=== PATIENT | female | born 1995 | race Caucasian/White ===

== ENCOUNTER 2020-03-27 02:23 | Emergency (ER) | payer OTHER ==
--- NOTE | 2020-03-27 02:59 | ED Physician Documentation ---
PD HPI ABD PAIN - Stated complaint Stated Complaint: ABD PX - Chief complaint Chief Complaint: Abd Pain - History obtained from History obtained from: Patient - History of Present Illness Timing - onset: How many weeks ago (1) Timing - details: Gradual onset, Intermittant, Waxing and waning Pain level max: 8 Pain level now: 5 Quality: Cramping Location: All over / everywhere Radiation: Other (no radiation) Improved by: Other (nothing) Worsened by: Other (no exacerbating factors) Associated symptoms: Nausea, Vomiting, Constipation. No: Fever, Diarrhea Similar symptoms before: Has not had sx before Recently seen: Not recently seen - Additional information Additional information: c/o 1 week of constipation with urge to defecate but no BM, associated with generalized cramping pain that is episodic with pain-free intervals. Patient is 17 weeks . Has been taking stool softeners without results. Tolerating PO; has had occasional nausea and emesis x 2 Review of Systems Constitutional: denies: Fever, Chills, Sweats Cardiac: reports: Reviewed and negative Respiratory: reports: Reviewed and negative GI: reports: Abdominal Pain, Nausea, Vomiting, Constipation. denies: Abdominal Swelling : reports: Now EGA (17 weeks). 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 - Present Medications Home Medications: Ambulatory Orders Medication Instructions Recorded Confirmed Pnv No.95/Ferrous Fum/Folic AC 1 tab PO DAILY 03/27/20 03/27/20 [ Vitamins Tablet] - Allergies Allergies/Adverse Reactions: Allergies Allergy/AdvReac Type Severity Reaction Status Date / Time No Known Drug Allergies Allergy Verified 03/27/20 02:40 - Living Situation Living Arrangement: reports: At home PD ED PE NORMAL - Vitals Vital signs reviewed: Yes - General General: Alert and oriented X 3, No acute distress, Well developed/nourished - HEENT HEENT: Moist mucous membranes - Neck Neck: Supple, no meningeal sign - Cardiac Cardiac: RRR, No murmur - Respiratory Respiratory: No respiratory distress, Clear bilaterally - Abdomen Abdomen: Normal bowel sounds, Soft, Non tender, Non distended - Back Back: No CVA TTP Results - Vitals Vitals: Vital Signs - 24 hr 10/10/20 10/10/20 10/10/20 02:35 04:31 04:42 Temperature 36.9 C 36.8 C Heart Rate 97 89 86 Respiratory 22 18 Rate Blood Pressure 121/81 H 126/69 128/79 O2 Saturation 99 100 03/27/20 05:40 Temperature 36.8 C Heart Rate 79 Respiratory 16 Rate Blood Pressure 123/76 O2 Saturation 100 Oxygen O2 Source Room air - Labs Labs: Laboratory Tests 03/27/20 03/27/20 03/27/20 02:55 02:56 02:56 WBC 15.0 H RBC 4.14 L Hgb 11.9 L Hct 35.8 L MCV 86.5 MCH 28.7 MCHC 33.2 RDW 14.6 Plt Count 238 MPV 10.7 Neut # (Auto) 12.0 H Lymph # (Auto) 2.1 [place] # (Auto) 0.7 Eos # (Auto) 0.1 Baso # (Auto) 0.1 Absolute Nucleated RBC 0.00 Nucleated RBC % 0.0 Sodium 134 L Potassium 3.6 Chloride 103 Carbon Dioxide 22 Anion Gap 9.0 BUN 10 Creatinine 0.5 Estimated GFR (MDRD) 152 Glucose 97 Calcium 9.3 Total Bilirubin < 0.2 L AST 14 ALT 11 Alkaline Phosphatase 69 Total Protein 7.4 Albumin 3.5 Globulin 3.9 Albumin/Globulin Ratio 0.9 L Lipase 32 Urine Color YELLOW Urine Clarity CLEAR Urine pH 5.0 Ur Specific [place] >=1.030 H Urine Protein NEGATIVE Urine Glucose (UA) NEGATIVE Urine Ketones 15 H Urine Occult Blood NEGATIVE Urine Nitrite NEGATIVE Urine Bilirubin NEGATIVE Urine Urobilinogen 0.2 (NORMAL) Ur Leukocyte Esterase NEGATIVE Ur Microscopic Review NOT INDICATED Urine Culture Comments NOT INDICATED - Rads (name of study) abdominal xray Radiology: Prelim report reviewed, See rad report PD MEDICAL DECISION MAKING - ED course Complexity details: reviewed results, re-evaluated patient, considered differential, d/w patient ED course: ED RN administered fleets enema without results. a single abdominal xray was performed to assess for possible obstruction vs constipation, and this image is c/w constipation, appears to be greatest in ascending colon and hepatic flexure; patient given magnesium citrate to drink once she is home according to instructions, return if worse Departure - Departure Disposition: 01 Home, Self Care Clinical Impression: Constipation Condition: Good Instructions: ED Constipation Follow-Up: AGATHA JEFFERY [Primary Care Provider] - Discharge Date/Time: 03/27/20 05:46
[2020-03-27 03:02] LABS: BASOPHILS # (AUTO) 0.1 10^3/uL (0.0-0.1); BASOPHILS % (AUTO) 0.3 %; EOSINOPHILS # (AUTO) 0.1 10^3/uL (0.0-0.7); EOSINOPHILS % (AUTO) 0.4 %; HGB - HEMOGLOBIN 11.9 g/dL (12.0-16.0); LYMPHOCYTES # (AUTO) 2.1 10^3/uL (1.5-3.5); LYMPHOCYTES % (AUTO) 14.2 %; MEAN CORPUSCULAR HEMOGLOBIN 28.7 pg (27.0-31.0); MEAN CORPUSCULAR HGB CONC 33.2 g/dL (32.0-36.0); MEAN CORPUSCULAR VOLUME 86.5 fL (81.0-99.0); MEAN PLATELET VOLUME 10.7 fL (7.9-10.8); MONOCYTES # (AUTO) 0.7 10^3/uL (0.0-1.0); MONOCYTES % (AUTO) 4.5 %; PLT - PLATELET COUNT 238 10^3/uL (130-450); RED BLOOD COUNT 4.14 10^6/uL (4.20-5.40); RED CELL DISTRIBUTION WIDTH 14.6 % (12.0-15.0)
[2020-03-27 03:11] LABS: ALBUMIN 3.5 g/dL (3.2-5.5); ALBUMIN/GLOBULIN RATIO 0.9 (1.0-2.2); ALKALINE PHOSPHATASE 69 IU/L (42-121); ALT ALANINE AMINOTRANSFERASE 11 IU/L (10-60); AST ASPARTATE AMINOTRANSFERASE 14 IU/L (10-42); BILIRUBIN,TOTAL < 0.2 mg/dL (0.2-1.0); BUN - BLOOD UREA NITROGEN 10 mg/dL (6-20); CALCIUM 9.3 mg/dL (8.5-10.3); CARBON DIOXIDE - CO2 22 mmol/L (21-32); CHLORIDE 103 mmol/L (101-111); CREATININE 0.5 mg/dL (0.4-1.0); GLUCOSE 97 mg/dL (70-100); LIPASE 32 U/L (22-51); SODIUM 134 mmol/L (135-145); TOTAL PROTEIN 7.4 g/dL (6.7-8.2)
[2020-03-27 03:12] LABS: BILIRUBIN,URINE NEGATIVE (NEGATIVE); GLUCOSE, URINE (UA) NEGATIVE (NEGATIVE); KETONES,URINE (UA) 15 mg/dL (NEGATIVE); LEUKOCYTE ESTERASE, URINE NEGATIVE (NEGATIVE); NITRITE,URINE NEGATIVE (NEGATIVE); OCCULT BLOOD,URINE NEGATIVE (NEGATIVE); PROTEIN,URINE NEGATIVE (NEGATIVE); UROBILINOGEN,URINE 0.2 (NORMAL) E.U./dL (NORMAL)
[2020-03-27 03:13] LABS: CLARITY,URINE CLEAR (CLEAR)
[2020-03-27] MEDS ORDERED: MINERAL OIL ENEMA 133 ML BOTTLE RC STA (03:19)
[2020-03-27] MEDS ORDERED: SODIUM CHLORIDE 0.9% 1,000 ML IV STA ×2 (03:19→03:32)
[2020-03-27] MEDS ORDERED: MAGNESIUM CITRATE 296 ML BOTTLE PO STA (05:31)
[2020-03-27 05:45] VITALS: BP 123/76
--- NOTE | 2020-03-27 07:19 | XRAY Report ---
PROCEDURE: Abdomen 1 View X-Ray INDICATIONS: abd. pain TECHNIQUE: 1 view of the abdomen were acquired. COMPARISON: None. FINDINGS: Surgical changes and devices: None. Bowel: No pneumoperitoneum. The bowel gas pattern is nonobstructive. Moderate fecal material noted in the region of the ascending colon, transverse colon, and splenic flexure. Soft tissues: No masses; visualized solid organ contours appear normal in size. No suspicious abdom inal calcifications. Gravid uterus overlying the urinary bladder. Bones: No suspicious bony abnormalities. Mild dextrocurvature of the mid lumbar spine. IMPRESSION: 1. Moderate fecal material noted in the ascending colon through the splenic flexure. Findings are com patible with constipation. 2. Gravid uterus. No significant discrepancy with initial interpretation by overnight radiologist. Reviewed by: Duane Leihg MD on 03/27/2020 7:18 AM PDT Approved by: Duane Leigh MD on 03/27/2020 7:18 AM PDT Station ID: [id number]
== END 2020-03-27 05:46 | disposition home or self-care (01) ==
LOC: ED 02:23
DX: O99.612 Diseases of the digestive system complicating pregnancy, second trimester (principal); K59.00 Constipation, unspecified; Z3A.17 17 weeks gestation of pregnancy
CPT/HCPCS: 36415; 74018; 80053; 81003; 83690; 85025; 99282; 99284; A9270; 81001; 87086

== ENCOUNTER 2020-05-24 16:33 | Outpatient (CLI) | payer OTHER ==
--- NOTE | 2020-05-25 15:54 | Ultrasound Report ---
PROCEDURE: OB F/U or Repeat INDICATIONS: MEASURING LARGE FOR GEST AGE; GROWTH JUSTINA OUTSIDE/PRIOR DATING DATA: Last menstrual period (LMP): 11/29/2019. LMP-based estimated date of delivery (AMRITA): 09/04/2020. First dating scan (date and location): 02/29/2020 ([facility]). Estimated date of delivery (AMRITA) from first dating scan: 08/30/2020. TECHNIQUE: Real-time scanning was performed of the fetus, with image documentation and biometric measurements. Endovaginal scanning: Performed COMPARISON: None. FINDINGS: General: A single living intrauterine gestation is present. Presentation: Variable Placenta: Placental position is anterior, without previa. Amniotic fluid index: 14 cm, 41st percentile for gestational age. heart rate: 133 beats per minute. Maternal cervical canal: 4.6 cm long and closed; normal length is 2.5 cm or more. biometrics: Biparietal diameter: 6.2 cm, 25 weeks 2 days Head circumference: 23.7 cm, 25 weeks 5 days Abdominal circumference: 22.2 cm, 26 weeks 4 days Femur length: 4.7 cm, 25 weeks 5 days Estimated gestational age from initial scan: 26 weeks 0 days Composite gestational age from present scan: 25 weeks 6 days Estimated weight and percentile: 897 g, 58th percentile Measurement variability in biometric dating: +/- 10 days from 12-20 weeks gestation, +/- 2 weeks from 20-30 weeks gestation, +/- 3 weeks at 30 weeks gestation or more. Other: Not applicable. IMPRESSION: Single live intrauterine gestation with biometric parameters as described above. Reviewed by: Darshan Monk MD on 05/25/2020 3:53 PM PST Approved by: Darshan Monk MD on 05/25/2020 3:53 PM PST Station ID: [id number]
== END 2020-05-24 16:34 | disposition home or self-care (01) ==
LOC: DI 16:33
PROVIDERS: ATTEND Nurse Practitioner Obstetrics & Gynecology
DX: O36.62X0 Maternal care for excessive fetal growth, second trimester, not applicable or unspecified (principal); Z3A.26 26 weeks gestation of pregnancy

== ENCOUNTER 2020-05-31 14:27 | Emergency (ER) | payer OTHER ==
[2020-05-31 14:43] VITALS: BP 117/63
--- NOTE | 2020-05-31 15:11 | ED Physician Documentation ---
PD HPI NVD - Stated complaint Stated Complaint: FEVER/N/V - Chief complaint Chief Complaint: Abd Pain - History obtained from History obtained from: Patient (She is 26 weeks and became acutely ill this morning with fevers, body aches, nausea (declines nausea medicine) and diarrhea. No cough or shortness of breath. Her daughter is sick with what sounds like a viral syndrome.) Review of Systems Constitutional: reports: Fever, Myalgias, Fatigue Nose: reports: Epistaxis. 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 - Present Medications Home Medications: Ambulatory Orders Medication Instructions Recorded Confirmed Pnv No.95/Ferrous Fum/Folic AC 1 tab PO DAILY 03/27/20 03/27/20 [ Vitamins Tablet] - Allergies Allergies/Adverse Reactions: Allergies Allergy/AdvReac Type Severity Reaction Status Date / Time No Known Drug Allergies Allergy Verified 05/31/20 14:43 - Social History Does the pt smoke?: No Smoking Status: Never smoker Does the pt drink ETOH?: No Does the pt have substance abuse?: No - Immunizations Immunizations are current?: Yes - POLST Patient has POLST: No PD ED PE NORMAL - Vitals Vital signs reviewed: Yes - General General: Alert and oriented X 3, No acute distress - HEENT HEENT: PERRL, EOMI, Pharynx benign - Neck Neck: Supple, no meningeal sign, No bony TTP - Cardiac Cardiac: RRR, No murmur - Respiratory Respiratory: No respiratory distress, Clear bilaterally - Abdomen Abdomen: Non tender - Derm Derm: No rash - Neuro Neuro: Alert and oriented X 3, Normal speech - Psych Psych: Normal mood, Normal affect Results - Vitals Vitals: Vital Signs - 24 hr 05/31/20 14:39 Temperature 36.0 C L Heart Rate 93 Respiratory 16 Rate Blood Pressure 117/63 O2 Saturation 98 Oxygen O2 Source Room air PD MEDICAL DECISION MAKING - ED course ED course: Well-appearing woman who presents with viral URI symptoms. Coronavirus will be sent (send out). No clinical symptoms to relate to the . Departure - Departure Disposition: 01 Home, Self Care Clinical Impression: Viral syndrome Condition: Good Record reviewed to determine appropriate education?: Yes Instructions: ED Viral Syndrome Comments: Tylenol as needed for aches and pains. Return if worsening. Follow-up with your doctor in about 3 days if not better. Also routine care. You have a Covid test pending. You need to self quarantine until the result is done and negative. Do not leave your house. Do not get near anybody. The results should be done in 48 to 72 hours. We will call with a positive result, the fastest way to get a negative result for confirmation though is to go to the hospital website at [email or web address], click on the my [facility] tab and sign up for the patient portal. If any friends or family get sick and would like to have a Covid test done, but do not have signs or symptoms that would necessitate being hospitalized, we encourage testing through our coronavirus swabbing station, call [phone] to schedule an appointment. Forms: Activity restrictions
== END 2020-05-31 15:23 | disposition home or self-care (01) ==
LOC: ED 14:27
DX: O98.512 Other viral diseases complicating pregnancy, second trimester (principal); B34.9 Viral infection, unspecified; Z3A.26 26 weeks gestation of pregnancy; Z20.828 Contact with and (suspected) exposure to other viral communicable diseases
CPT/HCPCS: 99283

== ENCOUNTER 2020-06-25 08:36 | Outpatient (CLI) | payer OTHER ==
[2020-06-25 10:10] LABS: HGB - HEMOGLOBIN 9.7 g/dL (12.0-16.0); MEAN CORPUSCULAR HEMOGLOBIN 27.1 pg (27.0-31.0); MEAN CORPUSCULAR HGB CONC 31.8 g/dL (32.0-36.0); MEAN CORPUSCULAR VOLUME 85.2 fL (81.0-99.0); MEAN PLATELET VOLUME 10.4 fL (7.9-10.8); RED BLOOD COUNT 3.58 10^6/uL (4.20-5.40); RED CELL DISTRIBUTION WIDTH 13.8 % (12.0-15.0); WHITE BLOOD COUNT 11.9 x10^3/uL (4.8-10.8)
== END 2020-06-25 08:37 | disposition home or self-care (01) ==
LOC: LAB 08:36
PROVIDERS: ATTEND Nurse Practitioner Obstetrics & Gynecology
DX: Z36.89 Encounter for other specified antenatal screening (principal)
CPT/HCPCS: 36415; 82950; 85027

== ENCOUNTER 2020-07-21 15:08 | Outpatient (CLI) | payer OTHER ==
[2020-07-21] MEDS ORDERED: LACTATED RINGERS 1,000 ML IV ONE (15:53)
[2020-07-21] MEDS ORDERED: FERRIC GLUCONATE 125 MG in SODIUM CHLORIDE 0.9% 100ML 100 ML IV ONE (16:00)
[2020-07-21 17:16] LABS: BILIRUBIN,URINE NEGATIVE (NEGATIVE); GLUCOSE, URINE (UA) NEGATIVE (NEGATIVE); KETONES,URINE (UA) NEGATIVE (NEGATIVE); LEUKOCYTE ESTERASE, URINE NEGATIVE (NEGATIVE); NITRITE,URINE NEGATIVE (NEGATIVE); OCCULT BLOOD,URINE NEGATIVE (NEGATIVE); PH,URINE 6.5 PH (5.0-7.5); PROTEIN,URINE NEGATIVE (NEGATIVE); UROBILINOGEN,URINE 0.2 (NORMAL) E.U./dL (NORMAL)
[2020-07-21 17:17] LABS: CLARITY,URINE CLEAR (CLEAR)
[2020-07-21 17:18] LABS: BACTERIA,URINE None Seen /HPF (None Seen); RBC,URINE None Seen /HPF (0-5); SQUAMOUS EPITHELIAL CELL,UR RARE Squamous (<= Few)
[2020-07-21] MEDS ORDERED: TERBUTALINE 1 MG/ML VIAL SUBQ ONE (18:35)
--- NOTE | 2020-07-21 19:28 | Ultrasound Report ---
PROCEDURE: OB Limited INDICATIONS: cervical length assessment OUTSIDE/PRIOR DATING DATA: Last menstrual period (LMP): 11/29/2019. LMP-based estimated date of delivery (AMRITA): 09/04/2020. First dating scan (date and location): OB ultrasound, 02/29/2020. Estimated date of delivery (AMRITA) from first dating scan: 09/04/2020. TECHNIQUE: Real-time scanning was performed of the fetus, with image documentation. Endovaginal scanning: Performed COMPARISON: OB Ultrasound, 05/24/2020. FINDINGS: A single living intrauterine gestation is present. Presentation: Chronic Placenta: Placental position is anterior, without previa. Amniotic fluid index: 12.4 cm, 30.8% for gestational age. Largest pocket 5.2 cm. heart rate: 153 beats per minutes. Maternal cervical canal: 4.37 cm long and closed; normal length is 2.5 cm or more. Estimated gestational age from initial scan: 33 weeks 4 days; AMRITA 09/04/2020. There is a simple cyst in the left ovary. IMPRESSION: 1. A single living IUP is present. 2. Cervix measures 4.37 cm long and is closed. The preliminary result was given to Yamilet Grewal by dry cell assembly machine tender. Reviewed by: Jose Cho MD on 07/21/2020 7:26 PM PST Approved by: Jose Cho MD on 07/21/2020 7:26 PM PST Station ID: [id number]
--- NOTE | 2020-07-21 19:30 | Ultrasound Report ---
PROCEDURE: OB Transvaginal INDICATIONS: cervical length assessment TECHNIQUE: Transvaginal ultrasound was performed in addition to transabdominal scanning. FINDINGS: A single living intrauterine gestation is present. Presentation: Cephalic Placenta: Placental position is anterior, without previa. Amniotic fluid index: 12.4 cm, 30.8% for gestational age. Largest pocket 5.2 cm. heart rate: 153 beats per minutes. Maternal cervical canal: 4.37 cm long and closed; normal length is 2.5 cm or more. Estimated gestational age from initial scan: 33 weeks 4 days; AMRITA 09/04/2020. There is a simple cyst in the left ovary. IMPRESSION: 1. A single living IUP is present. 2. Cervix measures 4.37 cm long and is closed. The preliminary result was given to Yamilet Grewal by green feed attendant. Reviewed by: Jose Cho MD on 07/21/2020 7:29 PM PST Approved by: Jose Cho MD on 07/21/2020 7:29 PM PST Station ID: [id number]
[2020-07-21 19:38] VITALS: BP 114/60
[2020-07-21 19:47] LABS: CANDIDA GROUP DNA POSITIVE (NEGATIVE); CANDIDA KRUSEI DNA NEGATIVE (NEGATIVE); TRICHOMONAS VAGINALIS DNA NEGATIVE (NEGATIVE)
--- NOTE | 2020-07-22 13:49 | PROVIDER PROGRESS NOTE ---
- HPI Current : Current EDU 09/04/20 Gestation 33 Weeks and 4 Days 5 Para 1 Vital Signs Temperature 36.5 C 07/21/20 15:34 Heart Rate 105 H 07/21/20 15:34 Respiratory Rate 17 07/21/20 15:34 Blood Pressure 114/75 07/21/20 15:34 O2 Saturation 100 07/21/20 15:34 Temperature 36.5 C 07/21/20 16:09 Heart Rate 88 07/21/20 19:38 Respiratory Rate 16 07/21/20 19:38 Blood Pressure 114/60 07/21/20 19:38 O2 Saturation 99 07/21/20 19:38 - Exam Mari presents originally for an outpatient iron infusion, however was feeling some cramping today and her encouraged she be evaluated. Some contractions she barely notices, but others she needs to breathe through O: FFN- positive Affirm- positive yeast, negative BV UA- negative FHT 135, moderate variability, accels, no decels Speculum exam for FFN reveals softened external cervix appearance SVE is closed internal os/ some effacement (50%?)/-2 station 1L LR bolus given Fe infusion given while evaluating US- transvaginal reveals closed cervix with 4.37cm length Terbutaline given- contractions decreased A: 24yo at 33.4wks gestation with threatened labor Cervix closed P: Discharge home with labor precautions Pelvic Rest Continue with routine care Final Diagnosis: Threatened labor - Procedures OB Procedure Performed: NST NST Procedure: NST Procedure Stop Time 17:16 Patient States Movement Yes
== END 2020-07-21 20:01 | disposition home or self-care (01) ==
LOC: WFO 15:08 → FBP 15:13 → WFO 20:01
PROVIDERS: ATTEND Advanced Practice Midwife
DX: O60.03 Preterm labor without delivery, third trimester (principal); O23.593 Infection of other part of genital tract in pregnancy, third trimester; B96.89 Other specified bacterial agents as the cause of diseases classified elsewhere; O99.013 Anemia complicating pregnancy, third trimester; D64.9 Anemia, unspecified; Z3A.33 33 weeks gestation of pregnancy
CPT/HCPCS: 76815; 76817; 81001; 82731; 87481; 87661; 87801; 96365; 96372; 99213; J2916; J7120; 87086

== ENCOUNTER 2020-07-23 17:46 | Outpatient (CLI) | payer OTHER ==
[2020-07-23] MEDS ORDERED: NIFEdipine 10 MG CAPSULE PO ONE (18:05)
[2020-07-23] MEDS ORDERED: MAGNESIUM SULFATE 4 GRAM 4 GM/50 ML BAG IV ONE (18:06)
[2020-07-23] MEDS ORDERED: BETAMETHASONE 30 MG/5 ML VIAL IM ONE (18:06)
[2020-07-23] MEDS ORDERED: AMPICILLIN 2 GM in SODIUM CHLORIDE 0.9% MINIBAG 100 ML IV SCH (18:15)
[2020-07-23] MEDS ORDERED: MAGNESIUM SULFATE IN WATER 20 GM/500 ML IV.SOLN IV SCH (19:00)
[2020-07-23] MEDS ORDERED: LACTATED RINGERS 1,000 ML IV SCH (19:00)
--- NOTE | 2020-07-23 19:13 | PROVIDER PROGRESS NOTE ---
- HPI Chief Complaint: Labor Check Current : Chief Complaint: contractions HPI: Mari presents to [facility] today at approx 1800 with complaints of contractions today. She reports them as every 5-7minutes at 1300, but down to 10-15minutes when she finally presented. She rates them at 4-5/10 Following exam she reported a sensation of wetness/SROM She had presented to triage yesterday with contractions and was found to have a closed cervix, and a TV US showing 4.37cm cervical length 07/22 labs BV- neg Yeast- positive FFN- positive UA- neg Complications -anemia- on iron supplementation, iron infusion received x1 07/22/2020 -yeast infection- active. Rx sent yesterday, pt unable to fill -Pap 01/04/2020 ASCUS; HPV(high risk pos; 16/18 neg) Colpo indicated. Pt desires . History G1: 2016. SAB. 8wks G2: 2018. 41wks. Male. 8# G3: 2019. 39wks. Female 7#. Induced. G4: Current Labs and Findings Initial U/S: 03/08/2020 @ 14.2wks c/w LMP dating A pos/Rubella immune VZV: non-immune (vaccine ) Genetic testing: AFP Tetra -negative; SMA - negative FAS: 04/19/2020 WNL. Anterior placenta, no previa. 3VC. EFW 90th%tile. F/u growth ordered. f/u Growth: JUSTINA WNL (14); EFW 58%tile Glucola: 133 CBC: 30.5/9.7- iron supplementation started, iron infusion indicated Influenza: 05/12/2020 @ [facility] TDAP: 06/16/2020 GBS 36 weeks- collected at 33.6wks HSV: denies in self and partner Breast pump Rx: 06/16/2020 MOD: Anticipate ; Epecting a GIRL(unsure on name- Pratima?); 2 Children (11mo - Staci, 3yo - Eliecer); Desires unmedicated delivery - hoping to use nitrous oxide; desires (breastfed son x 13months, struggled with d aughter and fed x 2 months) Desires IOL r/t "history of fast labors" (had pit induction with both and 5 hour labor with last) childcare will be available at that time. pp contraception: Mirena IUD pap: 01/04/2020 ASCUS, HPV(high risk pos; 16/18 neg)- colpo indicated. Pt aware Allergies -NKDA Medications - vitamin- daily -Fe 325mg- daily -Clotrimazole- vaginal cream- nightly x7 nights (not yet started) Past Medical History -None Past Surgical History -None Social History -Non contributory Family History -Father HTN, NM male <55 -Brother- Autism, Dwarfism MGM- HTN PGM- HTN, Diabetes O: SVE 1.5-2/70/-3/mid/mod/intact Ctx q 4-10min, palpate mild/mod FHT 145, moderate variability, accels, no decels 07/23 labs GC/CT- awaiting results GBS- awaiting results ROM+- awaiting results Fern, valsalva, nitrizine, and pooling- negative A: 24yo at 33.6wks(EDC 09/04/2020 by 14.2wks US c/w LMP) with labor as evidenced by change in cervix from closed yesterday to 2cm today Cat I strip Requiring transfer to higher level facility with NICU P: [facility] accepting patient- Receiving physician Dr Rangel MgSO4- initiated Betamethasone- first dose administered IM at 1828 Nifedipine- pt declined due to orthodox preference- didn't want to interfere with the "progress of life"/God's plan (Reports as Jewish) GBS- pending GC/CT- pending UA/BV- wnl yesterday - Procedures NST Procedure: NST Procedure Stop Time 17:16
[2020-07-23 19:16] VITALS: BP 133/77
[2020-07-23 19:23] LABS: RUPTURE OF MEMBRANES PLUS NEGATIVE (NEGATIVE)
[2020-07-23 21:52] LABS: TRICHOMONAS VAGINALIS DNA NEGATIVE (NEGATIVE)
== END 2020-07-23 19:00 | disposition home or self-care (01) ==
LOC: WFO 17:46 → FBP 17:47 → WFO 19:00
PROVIDERS: ATTEND Advanced Practice Midwife
DX: O60.03 Preterm labor without delivery, third trimester (principal); O99.013 Anemia complicating pregnancy, third trimester; D50.9 Iron deficiency anemia, unspecified; O98.813 Other maternal infectious and parasitic diseases complicating pregnancy, third trimester; B37.9 Candidiasis, unspecified; O98.313 Other infections with a predominantly sexual mode of transmission complicating pregnancy, third trimester; A63.0 Anogenital (venereal) warts; Z3A.33 33 weeks gestation of pregnancy
CPT/HCPCS: 84112; 87491; 87591; 87661; 87797; 96372; 96374; 96375; 96376; 99212; J7120; 81001; 81003; 87081; 87086; J3475

== ENCOUNTER 2020-08-06 07:09 | Outpatient (CLI) | payer OTHER ==
[2020-08-06] MEDS ORDERED: TERBUTALINE 1 MG/ML VIAL SUBQ ONE (07:29)
[2020-08-06 07:39] VITALS: BP 109/57
--- NOTE | 2020-08-06 09:36 | PROVIDER PROGRESS NOTE ---
- HPI Chief Complaint: Labor Current : Current EDU 09/04/20 Gestation 35 Weeks and 6 Days 4 Para 2 Vital Signs Temperature 36.9 C 08/06/20 07:26 Heart Rate 91 08/06/20 07:26 Respiratory Rate 18 08/06/20 07:26 Blood Pressure 109/57 L 08/06/20 07:26 Temperature 36.9 C 08/06/20 07:51 Heart Rate 84 08/06/20 07:51 Respiratory Rate 16 08/06/20 07:51 Blood Pressure 109/57 L 08/06/20 07:51 O2 Saturation - Procedures OB Procedure Performed: NST Diagnosis/Indication for NST: labor NST Procedure: NST Procedure Start Time 17:52 Stop Time 18:50 - Plan Plan: S: Mari is a 24yo at 35.6wks who presents with report of strong contractions since 399. She denies VB or LOF and endorses movement She has a history of two term deliveries, however did have an episode of labor this causing her transfer to [facility] until stabilized and released back to midwifery care. She received two doses of betamethasone and 24h of MgSO4 administration IV. It is noted that her initial US was at 14.0wks and showed an AMRITA of 08/30/2020 instead of her LMP AMRITA of 09/04/2020 Future US showed baby continuing to measure 3-5 days ahead of dates Peds consulted and discussed likely appropriate continuation of care at this facility due to immediate proximity to 36.0wks gestation by any measure O: SVE on admit 1.5-2- unchanged from previous exams Terbutaline SQ given. Contractions appear to be every 5-10 minutes. FHT Cat I SVE recheck just over an hour later reveals an unchanged cervical exam. Mari would like to be discharged home. Declines therapeutic rest with MS/phenergan IM A: 24yo at 35.6wks gestation in false labor Appropriate for discharge home wellbeing, reassuring P: Discharge to home with instructions to return if contractions continue for 4 hours or more, or intensify in any way Otherwise continue with routine care NST perform date 08/06/2020 NST read date 08/06/2020 Impression: Reactive Final Diagnosis: False labor in third trimester
== END 2020-08-06 08:55 | disposition home or self-care (01) ==
LOC: WFO 07:09 → FBP 07:12 → WFO 08:55
PROVIDERS: ATTEND Advanced Practice Midwife
DX: O47.03 False labor before 37 completed weeks of gestation, third trimester (principal); Z3A.35 35 weeks gestation of pregnancy
CPT/HCPCS: 59025; 96372; 99213

== ENCOUNTER 2020-08-18 08:00 | Outpatient (CLI) | payer OTHER | END 2020-08-18 23:59 | disposition home or self-care (01) | LOC: LAB.R 08:00 | PROVIDERS: ATTEND Nurse Practitioner Obstetrics & Gynecology | DX: Z36.85 Encounter for antenatal screening for Streptococcus B (principal) | CPT/HCPCS: 87797 ==

== ENCOUNTER 2020-08-25 11:26 | Inpatient (IN) | payer OTHER ==
[2020-08-25] MEDS ORDERED: fentaNYL 100 MCG/2 ML VIAL IVP PRN (11:30)
[2020-08-25] MEDS ORDERED: ONDANSETRON 4 MG/2 ML VIAL IVP PRN (11:30)
[2020-08-25] MEDS ORDERED: METHYLERGONOVINE 0.2 MG/ML VIAL IM PRN (11:33)
[2020-08-25] MEDS ORDERED: miSOPROStoL 200 MCG TABLET BC PRN (11:33)
[2020-08-25] MEDS ORDERED: OXYTOCIN/SODIUM CHLORIDE 500 ML IV PRN (11:33)
[2020-08-25] MEDS ORDERED: LIDOCAINE-MPF 1% 30 ML VIAL ID PRN (11:33)
[2020-08-25] MEDS ORDERED: CARBOPROST TROMETHAMINE 250 MCG/ML AMP IM PRN (11:33)
[2020-08-25] MEDS ORDERED: TRANEXAMIC ACID IN NACL 1,000 MG/100 ML BAG IV PRN (11:33)
[2020-08-25] MEDS ORDERED: SODIUM CHLORIDE FLUSH 0.9% 10 ML SYRINGE IVP PRN (11:33)
[2020-08-25] MEDS ORDERED: OXYTOCIN 10 UNIT/ML VIAL IM PRN (11:33)
[2020-08-25] MEDS ORDERED: OXYTOCIN/SODIUM CHLORIDE 500 ML IV SCH (12:00)
[2020-08-25] MEDS ORDERED: LACTATED RINGERS 1,000 ML IV SCH (12:00)
[2020-08-25 12:09] LABS: BASOPHILS % (AUTO) 0.3 %; EOSINOPHILS % (AUTO) 0.3 %; HCT - HEMATOCRIT 33.7 % (37.0-47.0); HGB - HEMOGLOBIN 10.8 g/dL (12.0-16.0); LYMPHOCYTES # (AUTO) 2.3 10^3/uL (1.5-3.5); LYMPHOCYTES % (AUTO) 19.2 %; MEAN CORPUSCULAR HEMOGLOBIN 27.8 pg (27.0-31.0); MEAN CORPUSCULAR VOLUME 86.9 fL (81.0-99.0); MEAN PLATELET VOLUME 10.7 fL (7.9-10.8); MONOCYTES # (AUTO) 0.5 10^3/uL (0.0-1.0); MONOCYTES % (AUTO) 4.4 %; NEUTROPHILS # (AUTO) 9.1 10^3/uL (1.5-6.6); NEUTROPHILS % (AUTO) 75.1 %; PLT - PLATELET COUNT 226 10^3/uL (130-450); RED BLOOD COUNT 3.88 10^6/uL (4.20-5.40); RED CELL DISTRIBUTION WIDTH 18.9 % (12.0-15.0); WHITE BLOOD COUNT 12.2 x10^3/uL (4.8-10.8)
--- NOTE | 2020-08-25 15:08 | HISTORY & PHYSICAL EXAMINATION ---
Admit History - Visit Reason Visit Reason: Contractions - : 4 Parity: 2 Premature: 0 Ectopic: 0 : 1 Care: positive: [facility] Risk/History: positive: None Complications This : positive: None Smoking Status: Never smoker - Mother's Labs Mother's Blood Type: positive: A Mother's RH: positive: Positive GBS: positive: Group B Step Negative Rubella Status: positive: Immune Meds/Allgy - Home Medications Home Medications: Ambulatory Orders Medication Instructions Recorded Confirmed Pnv No.95/Ferrous Fum/Folic AC 1 tab PO DAILY 03/27/20 03/27/20 [ Vitamins Tablet] - Allergies Allergies/Adverse Reactions: Allergies Allergy/AdvReac Type Severity Reaction Status Date / Time No Known Drug Allergies Allergy Verified 05/31/20 14:43 Review of Systems - Constitutional Constitutional: denies: Fatigue, Fever, Chills, Malaise - Eyes Eyes: denies: Blurred vision, Spots in vision, Dipolpia - Cardiovascular Cariovascular: denies: Irregular heart rate, Palpitations, Chest pain, Edema - Respiratory Respiratory: denies: Cough, SOB at rest - Gastrointestinal Gastrointestinal: denies: Change in bowel habits - Integumentary Integumentary: denies: Rash, Pruritis - Neurological Neurological: denies: Headache Physical - Abdominal Exam Vital Signs: Temp Pulse Resp BP Pulse Ox 37.0 C 08/25/20 13:08 Contraction Frequency (min/apart): irregular, 2-8 Contraction Intensity: positive: Mild to moderate Uterine Resting Tone: positive: Soft - Monitoring Heart Rate Baseline: 140 Strip Review: positive: Category I - Presentation Presentation: positive: Vertex - Vaginal Exam Membranes: positive: Membranes intact Dilation (in cm): 4-5 Effacement (%): 70 Station: positive: -2 Cervical Position: positive: Posterior - Speculum Exam Speculum Exam Performed: positive: No Plan for Labor - Plan For Labor I expect patient to be DC'd or transferred within 96 hours.: Yes Plan for Labor: Mari is a 24yo @ 38.4wks who presents to [facility] with c/o contractions. Upon arrival she was noted to be 4-5/70/-2, posterior with intact membranes. She reports her contractions have increased in intensity throughout the morning. She had a routine visit this morning and had her membranes swept at that time. She reports her contractions have become more uncomfortable since that time. SVE this morning at her visit was /-2. She reports +FM. She denies vaginal bleeding or leakage of fluid. Mari has been a patient of [facility] since her transfer of care from [facility] at 23wks gestation. Her has been complicated by labor without delivery at 33.6wks gestation. At that time she was transferred to [facility] in anticipation for delivery. She received MgSO4 and betamethasone at that time. Upon her transfer she did not change her cervix for >24hrs and she was discharged to continue routine care. She has been diagnosed with anemia and is taking a daily iron supplement and received 1 IV iron transfusio harvey 33.6wks gestation. She will be admitted to [facility] for labor augmentation. Dating criteria: LMP: 11/29/2019 Initial ultrasound @ 14.2wks c/w LMP dating Serial exams - agree Medications: PNV; Zyrtec, FeSO4 325mg once daily Allergies: NKDA OBHx: G1: 2017 SAB with D&C @ 8wks G2: 2017 , epidural, male 8lbs G3: 2019 , unmedicated, female 7lbs. Pitocin IOL with 5 hour labor PMHx: Anemia; Chronic headaches, Scoliosis Surgical Hx: D&C (2016) Social Hx: Never smoker, no ETOH of IVDA. 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 Family Hx: Autism - brother; Dwarfism- brother; DVT-mother; Diabetes- PGM; HTN - father, PGM, MGM; [place]- Father course: Initial U/S: 03/08/2020 @ 14.2wks c/w LMP dating A pos/Rubella immune VZV: non-immune (vaccine ) Genetic testing: AFP Tetra -negative; SMA - negative FAS: 04/19/2020 WNL. Anterior placenta, no previa. 3VC. EFW 90th%tile. F/u growth ordered. f/u Growth: JUSTINA WNL (14); EFW 58%tile Threated PTL at 33.6wks- Released by PROV as stable Iron infusion- received at 33.6wks Glucola: 133 CBC: 30.5/9.7- iron supplementation started Influenza: 05/12/2020 @ [facility] TDAP: 06/16/2020 GBS at 37.4wks- neg. HSV: denies in self and partner Breast pump Rx: 06/16/2020 MOD: Anticipate ; Epecting a GIRL(unsure on name- Pratima?); 2 Children (11mo - Staci, 3yo - Eliecer); Desires unmedicated delivery - hoping to use nitrous oxide; desires (breastfed son x 13months, struggled with daughter and fed x 2 months) Desires IOL r/t "history of fast labors" (had pit induction with both and 5 hour labor with last) childcare will be available at that time. pp contraception: Mirena IUD pap: 01/04/2020 ASCUS, HPV(high risk pos; 16/18 neg)- colpo indicated. Pt aware Physical Exam: Normocephalic, atraumatic Heart RRR w/o M/G/R Lungs CTAB Abdomen gravid, soft, nontender EFW 3600g FHR baseline 140s, moderate variability, + accels, no deces Contractions palpate mild irregularly ever 2-8 minutes with soft resting tone SVE 4-5/70/-2, posterior. Vertex. Membranes intact Bilateral LE's trace edema Mood is good Assessment: 24yo @ 38.4wks gestation by LMP c/w 14.2wk U/S Early labor FHR Category I GBS negative Anemia complicating Plan: Admit to [facility] for labor augmentation. Initiate pitocin via IV with titration per protocol. Continuous monitoring. Nitrous oxide PRN. Jacuzzi PRN. Anticipate . Pt verbalized understanding and agrees to above plan. She denies further ques tions or concerns at this time.
--- NOTE | 2020-08-25 15:43 | PROVIDER PROGRESS NOTE ---
Labor Progress Note - Uterine Monitoring Uterine Monitoring Mode: positive: External toco Contraction Frequency (min/apart): 3 Contraction Intensity: positive: Moderate Uterine Resting Tone: positive: Soft - Monitoring Monitor Mode: positive: External ultrasound Heart Rate Baseline: 135 Heart Rate Variability: positive: Moderate (6-25 bmp) Accelerations: positive: Present, 15x15 Decelerations: positive: None Strip Review: positive: Category I - Vaginal Exam Dilation (in cm): 5 Effacement (%): 70 Station: -2 Cervical Position: Posterior - Labor Progress Note Labor Progress Note/Additional Text: S: Breathing through contractions. Reports nervousness about pain associated with labor. With her last she had her water broken at 7cm dilated and had a baby 30 minutes later. She states she would like to try the nitrous oxide for pain management. She attempted to get an epidural last night but she progressed rapidly. She does not desire and epidural with this delivery and states her recovery was much easier with her daughter than with her son. She is unaccompanied as her is home with their children. Her mood is good. O: SVE 5/70/-2, posterior. Vertex. AROM a moderate amount of light meconium stained amniotic fluid - convex grinder operator coffee brewer notified to be present for delivery. FHR baseline 135, moderate variability, + accels, no decels Contractions palpate moderate every 3 minutes with soft resting tone. Pitocin currently at 3mU/mL A: 24yo @ 38.4wks gestation by LMP c/w 14.2wk U/S Early labor FHR Category I P: Continue Pitocin with titration per protocol for labor augmentation Nitrous oxide PRN. jacuzzi PRN. Continuous monitoring. Anticipate
[2020-08-25] MEDS ORDERED: WITCH HAZEL/GLYCERIN 1 PAD TOP PRN (16:38)
[2020-08-25] MEDS ORDERED: HYDROCORTISONE 1% CREAM 28 GM TUBE PR PRN (16:38)
--- NOTE | 2020-08-25 16:38 | DELIVERY NOTE ---
Delivery Note - Labor Labor: positive: Spontaneous, Augmented by ARM, Augmented by oxytocin - Delivery Method Infant Delivery Method: positive: Spontaneous vaginal delivery - Presentation Presentation: positive: Vertex, NORMAN - left occiput anterior - Nuchal Cord Nuchal Cord: positive: None - Amniotic Fluid Description Amniotic Fluid Description: positive: Light meconium - Episiotomy Type Episiotomy Type: positive: None - Laceration Laceration: positive: None - Delivery Outcome Delivery Outcome: positive: Livebirth - Fillmore Fillmore: positive: Placed in direct skin contact with mother, Bulb syringe, Stimulated, Warmed, Hartshorn used, Warmer used Fillmore sex: positive: Female - Cord Cord: positive: 3 vessels - Placenta Placenta: positive: Intact, Spontaneous - Estimated Blood Loss Estimated Blood Loss (in cc): 200 - Post Delivery Events Post Delivery Events: positive: No post delivery events - Delivery Comments (Free Text/Narrative) Delivery Comments (Free Text/Narrative): Labor: This 24yo @ 38.4wks gestation by LMP c/w 14.2wk U/S presented to [facility] on 08/25/2020 at approximately 1130 with c/o contractions. Upon arrival she was noted to be 4-5/70/-2 and vertex with intact membranes. FHR pattern demonstrated Category I pattern throughout labor. Precipitous labor course. SROM occurred at 1458 and was noted to be a moderate amount of light meconium stained amniotic fluid and interventional physician or assistant notified to be present at time of delivery. Pt was augmented with pitocin for a maximum infusion rate of 3mU/mL. Nitrous oxide used for pain management in addition to 50mcg IV Fentanyl x 1 at 1547. Pt progressed to 9cm with intense spontaneous urge to bear down at 1606. : Normal of viable female infant on 08/25/2020 @ 1610 for a total se cond stage of 4 minutes. No nuchal cord. The was placed on maternal abdomen, stimulated, dried, and placed skin to skin. 's were 8/9 at 1 and 5 min respectively. Pitocin administered via IV for hemostasis. The umbilical cord was allowed to pulsate x 1 minute and request by or assistant to cut umbilical cord at that time so could be taken to warmer for evaluation secondary to presence of meconium. The umbilical cord was doubly clamped by CNM and cut by the patient. 3VC. Cord blood was obtained. Fundal massage and gentle cord traction applied for active management of the third stage. Placenta delivered spontaneously and intact at 1614. EBL 200mL. Fourth stage: Uterine fundus firm and there is no excessive bleeding. The perineum, vagina, and cervix were inspected and found to be intact. initiated. Family bonding well. Both mother and baby were left in stable condition.
[2020-08-25] MEDS: IBUPROFEN 800 MG TABLET PO SCH (16:45)
[2020-08-25] MEDS: ACETAMINOPHEN 500 MG TABLET PO SCH (16:45)
[2020-08-26] MEDS: IBUPROFEN 800 MG TABLET PO SCH ×3 (00:57→15:57)
[2020-08-26] MEDS: DOCUSATE SODIUM 100 MG CAPSULE PO SCH ×2 (01:01→07:43)
[2020-08-26] MEDS: ACETAMINOPHEN 500 MG TABLET PO SCH ×2 (01:01→15:56)
--- NOTE | 2020-08-26 12:41 | PROVIDER PROGRESS NOTE ---
Subjective - Subjective Subjective: FINAL PROGRESS NOTE: S: Bonding well with baby. with some difficulty getting baby to stay awake at the breast. Did supplement with formula x once. Bleeding decreased and is light. Pain well controlled with oral medications. She desires to be discharged home today as her is home with their 2 children. O: BP 121/78, T 36.5, HR 64, RR 16 Heart RRR w/o M/G/R, lungs CTAB, abdomen soft and nontender with fundus firm at U-1, perineum intact, light lochia rubra, bilateral LE's trace edema. A: 24yo -->P3 PPD#1 s/p TSVD viable female infant Normal recovery P: Reviewed pp self care and warning s/sx. Pt has emergency contact information. Pt intends to f/u in 1 week at [facility] with myself or sooner PRN. Pt verbalized understanding and agrees to above plan. She denies further questions or concerns at this time. Objective - Vital Signs/Intake & Output Vital Signs: Vital Signs x48h Temp Pulse Resp BP Pulse Ox 08/26/20 09:07 36.5 C 64 16 121/78 08/26/20 05:00 36.7 C 75 18 122/68 100 Intake & Output: Intake & Output 08/23/20 08/24/20 08/25/20 08/26/20 23:59 23:59 23:59 23:59 Intake Total 120 Balance 120 - Lab Results Fish Bones: 08/25/20 11:50 Other Labs: Lab Results x24hrs 08/25/20 Range/Units 11:50 Blood Type A POSITIVE Antibody Screen NEGATIVE
--- NOTE | 2020-08-26 12:41 | Discharge Plan ---
Discharge Plan Problem Reviewed?: No Disposition: Home, Self Care Condition: Good Diet: Regular Activity Restrictions: No Restrictions Shower Restrictions: No Driving Restrictions: No No Smoking: If you smoke, Please STOP! Call for help. Follow-up with: Beba Mai CNM, ARNP [Provider Admit Priv/Credential] -
--- NOTE | 2020-08-26 13:36 | DISCHARGE SUMMARY ---
Physician: MONI Santana DATE OF ADMISSION: 08/25/2020 DATE OF DISCHARGE: 08/26/2020 DIAGNOSES ON ADMISSION 1. A 24-year-old G4, P2-0-1-2 at 38.4 weeks gestation. 2. Early labor. 3. Group B Streptococcus negative. 4. Anemia, complicating . 5. heart rate category 1. DIAGNOSES ON DISCHARGE 1. A 24-year-old G4, P3-0-1-3, status post spontaneous vaginal delivery on 08/25/2020. 2. . 3. Normal recovery. HISTORY OF PRESENT ILLNESS: She is a patient of [facility], who presented on 2020 at approximately 11:30 with complaints of contractions. Upon arrival, her cervix was noted to b e 4-5 cm dilated, 74% effaced, -2 position and vertex position with intact membranes. Artificial rup ture of membranes occurred at 1458, there was noted to be a moderate amount of light meconium stained amniotic fluid. She was augmented with Pitocin for a maximum infusion rate of 3 mU/mL She progress ed to spontaneously deliver a viable female infant on 08/25/2020 at 1610 following a precipitous labo r course. Apgars were 8 and 9 at 1 and 5 minutes respectively. EBL was 200 mL The perineum, vagina , and cervix were inspected and found to be intact. She has been doing well in her course. She is ambulating and tolerating a regular diet. She is urinating without difficulty and her lochia is normal. Her pain is well controlled with oral medications. She will be discharged home today on day #1 with instructions to continue he r vitamin while and to continue taking ibuprofen and Tylenol [id number] as needed for pain management. She intends to followup with myself at [facility] [place] in 1 week for routine visit or sooner if needed. She has been given precautions to call if she has any worsening fevers, chills, abdominal pain, increased bleeding, or foul-smelling vaginal lo stefan. TD: 08/26/2020 12:46
[2020-08-26 17:52] VITALS: BP 118/66
--- NOTE | 2020-08-26 18:04 | Labor Flowsheet ---
Labor Flowsheet Datetime Report Generated by CPN: 08/26/2020 18:03 Datetime: 08/26/2020 09:07 VITAL SIGNS NBP Sys/Omayra/Mean (mmHg): 121 : 78 : 84 Pulse: 72 LaborFlag: Labor Datetime: 08/25/2020 17:25 PAIN Pain Scale: 0 Datetime: 08/25/2020 16:14 Comments: placenta Datetime: 08/25/2020 16:09 UTERINE ACTIVITY Monitor Mode: External Frequency (min): 2-3 Quality: Strong Duration (sec): 60 Pattern: Normal: <= 5 Contractions in 10 Minutes Resting Tone (Palpate): Relaxed FHR Baseline Changes: No Baseline Change Variability: Moderate 6-25 bpm Accelerations: 15X15 Decelerations: None Category: Category I Datetime: 08/25/2020 16:06 VAGINAL EXAM Dilatation (cm): 9.0 Effacement (%): 90 Station: 0 Exam by: A Pau Cervix, Consistency: Soft Vaginal Exam Comments: complete shortly after last check Datetime: 08/25/2020 15:53 Monitor Interventions for UA: Solon Adjusted Monitor Interventions for FHR: Ultrasound Adjusted Datetime: 08/25/2020 15:51 Patient Care Comments: hands and knees Datetime: 08/25/2020 15:47 Analgesics/Sedatives: Fentanyl (mcg) @ 50mcg IVP given Datetime: 08/25/2020 15:46 Cervix, Position: Midposition Datetime: 08/25/2020 15:39 Pain Presence: Intermittent Pain Type: Burning; Cramping Pain Location: Abdomen; Right Groin; Left Groin Pain Relief Measures: Pain Medication Given; Comfort Measures Pain Assessment Comments: nitros Comfort Measures: Breathing/Relaxation Datetime: 08/25/2020 15:30 COMMUNICATION Communication: Call/Page Placed to Provider Communication Comments: Dr. Rodriguez made aware of light mec. MD will be in for delivery Datetime: 08/25/2020 15:09 Temperature (C): 36.8 Datetime: 08/25/2020 15:04 Medication Comments: Nitros given/explained. Pt. verbalized understanding. Return demonstration g iven. Datetime: 08/25/2020 14:58 Membrane Status: Ruptured Membranes Rupture Method: Artificial Amniotic Fluid Color: Light Meconium Amniotic Fluid Amount: Moderate Datetime: 08/25/2020 14:37 Pain Goal: 5 Datetime: 08/25/2020 14:33 PATIENT CARE Patient Position/Activity: Walking Datetime: 08/25/2020 14:28 I/O Interventions: Up to BR Datetime: 08/25/2020 14:13 Pitocin Checklist: At Least 1 Acceleration of 15 bpm x 15 Seconds in 30 Minutes or Adequate Variabi lity; No More than 1 Late Deceleration Occurred in Past 30 Minutes; No More than 2 Variable Decelerat ions > 60 Seconds in Duration and decreasing >60 bpm in 30 minutes; No More than 5 Uterine Contractio ns in 10 Minutes for any 20 Minute Interval; Uterus Palpates Soft between Contractions MEDICATIONS Pitocin (milliunits): Increased to @ 3 Datetime: 08/25/2020 14:02 ASSESSMENT A Monitor Mode: Telemetry Datetime: 08/25/2020 13:35 SpO2 (%): 100 Datetime: 08/25/2020 12:45 FHR Baseline Rate : 130 Datetime: 08/25/2020 12:30 Contraction Comments: irritability
== END 2020-08-26 17:40 | disposition home or self-care (01) | DRG 807 ==
LOC: WFO 11:26 → FBP 11:27 → WFO 11:33
PROVIDERS: ADMIT Nurse Practitioner Obstetrics & Gynecology; ATTEND Nurse Practitioner Obstetrics & Gynecology
PROC: 10E0XZZ Delivery of Products of Conception, External Approach (ICD-10-PCS; principal; 2020-08-25)
PROC: 10907ZC Drainage of Amniotic Fluid, Therapeutic from Products of Conception, Via Natural or Artificial Opening (ICD-10-PCS; 2020-08-25)
DX: O99.013 Anemia complicating pregnancy, third trimester (principal); Z37.0 Single live birth; D64.9 Anemia, unspecified; O77.0 Labor and delivery complicated by meconium in amniotic fluid; Z3A.38 38 weeks gestation of pregnancy
CPT/HCPCS: 85025; 86850; 86900; 86901; A9270; J7120

== ENCOUNTER 2020-10-15 10:57 | Emergency (ER) | payer OTHER ==
--- OUTSIDE RECORDS SUMMARY | 2020-10-15 11:00 | EXTERNAL MEDICAL SUMMARY RPT | Continuity of Care Document ---
:1995 Demographics Phone Unavailable Preferred Language Unknown Marital Status Unknown Jew Affiliation Unknown Race Unknown Ethnic Group Unknown Author Organization [place] Address [address] [place] [address] Phone Problems date description facility [id number] Supervision of with history [facility] of pre-term labor, second trimester Social History date description facility [id number]
--- NOTE | 2020-10-15 11:15 | ED Physician Documentation ---
PD HPI ABD PAIN - Stated complaint Stated Complaint: R SIDE ABDOMINAL PX - History obtained from History obtained from: Patient - History of Present Illness Timing - onset: Last night Timing - details: Gradual onset, Still present (increased into this morning) Quality: Aching, Pain Location: RLQ, Suprapubic Radiation: No: Chest, Right flank Improved by: Laying still Worsened by: Moving, Palpation. No: Breathing Associated symptoms: Nausea, Loss of appetite. No: Fever, Vomiting, Diarrhea, Constipation, Dysuria, Vaginal bleeding Similar symptoms before: Has not had sx before Recently seen: Other (She delivered full-term vaginal delivery child a month ago without any complications.) Review of Systems Constitutional: denies: Fever, Chills, Myalgias Nose: denies: Rhinorrhea / runny nose, Congestion Throat: denies: Sore throat Respiratory: denies: Cough GI: reports: Abdominal Pain, Nausea. denies: Vomiting, Constipation, Diarrhea : reports: LMP (has not had a period since her delivery a month ago). 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 - Present Medications Home Medications: Ambulatory Orders Medication Instructions Recorded Confirmed No Known Home Medications 10/15/20 10/15/20 - Allergies Allergies/Adverse Reactions: Allergies Allergy/AdvReac Type Severity Reaction Status Date / Time No Known Drug Allergies Allergy Verified 10/15/20 11:16 - Social History Does the pt smoke?: No Smoking Status: Never smoker Does the pt drink ETOH?: No Does the pt have substance abuse?: No - Immunizations Immunizations are current?: Yes - POLST Patient has POLST: No PD ED PE NORMAL - Vitals Vital signs reviewed: Yes - General General: Alert and oriented X 3, Well developed/nourished, Other (She appears uncomfortable with some guarding of the lower abdomen.) - HEENT HEENT: Pharynx benign - Neck Neck: Supple, no meningeal sign, No adenopathy - Cardiac Cardiac: RRR, No murmur - Respiratory Respiratory: Clear bilaterally - Abdomen Abdomen: Soft, Non distended, No organomegaly, Other (Tender in the right lower quadrant with some localized guarding and percussion tenderness. No rebound noted. The mid lower abdomen is also tender. Upper abdomen is not tender.). No: Normal bowel sounds (decreased) - Female Female : Deferred - Rectal Rectal: Deferred - Back Back: No CVA TTP - Derm Derm: Normal color, Warm and dry, No rash - Extremities Extremities: No tenderness to palpate, No edema, No calf tenderness / cord - Neuro Neuro: Alert and oriented X 3, No motor deficit, Normal speech Results - Vitals Vitals: Vital Signs - 24 hr 10/15/20 10/15/20 11:05 13:24 Temperature 36.8 C Heart Rate 77 57 L Respiratory 16 16 Rate Blood Pressure 109/96 H 118/78 O2 Saturation 100 100 Oxygen O2 Source Room air - Labs Labs: Laboratory Tests 10/15/20 10/15/20 10/15/20 11:22 11:22 11:22 WBC 7.1 RBC 4.73 Hgb 13.4 Hct 42.5 MCV 89.9 MCH 28.3 MCHC 31.5 L RDW 16.9 H Plt Count 253 MPV 9.8 Neut # (Auto) 3.7 Lymph # (Auto) 2.8 Cleveland # (Auto) 0.5 Eos # (Auto) 0.1 Baso # (Auto) 0.0 Absolute Nucleated RBC 0.00 Nucleated RBC % 0.0 Sodium 139 Potassium 3.5 Chloride 103 Carbon Dioxide 27 Anion Gap 9.0 BUN 14 Creatinine 0.7 Estimated GFR (MDRD) 103 Glucose 81 Calcium 9.6 Total Bilirubin 0.9 AST 18 ALT 23 Alkaline Phosphatase 97 Total Protein 8.5 H Albumin 4.8 Globulin 3.7 Albumin/Globulin Ratio 1.3 Lipase 31 Urine Color YELLOW Urine Clarity CLEAR Urine pH 6.0 Ur Specific Booker 1.025 Urine Protein NEGATIVE Urine Glucose (UA) NEGATIVE Urine Ketones NEGATIVE Urine Occult Blood NEGATIVE Urine Nitrite NEGATIVE Urine Bilirubin NEGATIVE Urine Urobilinogen 0.2 (NORMAL) Ur Leukocyte Esterase NEGATIVE Ur Microscopic Review NOT INDICATED Urine Culture Comments NOT INDICATED Urine HCG, Qual 10/15/20 11:22 WBC RBC Hgb Hct MCV MCH MCHC RDW Plt Count MPV Neut # (Auto) Lymph # (Auto) Cleveland # (Auto) Eos # (Auto) Baso # (Auto) Absolute Nucleated RBC Nucleated RBC % Sodium Potassium Chloride Carbon Dioxide Anion Gap BUN Creatinine Estimated GFR (MDRD) Glucose Calcium Total Bilirubin AST ALT Alkaline Phosphatase Total Protein Albumin Globulin Albumin/Globulin Ratio Lipase Urine Color Urine Clarity Urine pH Ur Specific Booker Urine Protein Urine Glucose (UA) Urine Ketones Urine Occult Blood Urine Nitrite Urine Bilirubin Urine Urobilinogen Ur Leukocyte Esterase Ur Microscopic Review Urine Culture Comments Urine HCG, Qual NEGATIVE - Rads (name of study) pelvic U/S Radiology: Prelim report reviewed (Normal pelvic U/S, unable to visualize appendix. ), See rad report PD MEDICAL DECISION MAKING - ED course Complexity details: re-evaluated patient (Pelvic ultrasound did not show any acute abnormality. Appendix was not seen on ultrasound. Clinical exam is concerning for appendicitis. White count is normal. At this point CT would be appropriate and are as is broken today. Will work on transfer.), considered differential (Consider possibilities of ovarian cyst versus torsion versus kidney stone versus appendicitis versus ectopic . She is well over a month without any vaginal discharge so endometritis would be unlikely.), d/w patient, d/w heritage consultant (Talked with Dr. Isa Ocampo at [facility] ER who accepted transfer the patient to their facility for CT scanning and disposition.) ED course: I did discuss with the patient rationale for wanting further imaging. Her white count is normal but she does have tenderness suggestive of appendicitis. She was in favor of CT scanning over potential surgical intervention empirically. We will look at transferring to [facility] ER for CT scan and further disposition. Departure - Departure Disposition: 02 Transfer Acute Care Hosp Clinical Impression: RLQ abdominal pain Condition: Stable Record reviewed to determine appropriate education?: Yes
[2020-10-15 11:32] LABS: BASOPHILS % (AUTO) 0.6 %; BILIRUBIN,URINE NEGATIVE (NEGATIVE); EOSINOPHILS # (AUTO) 0.1 10^3/uL (0.0-0.7); EOSINOPHILS % (AUTO) 1.1 %; GLUCOSE, URINE (UA) NEGATIVE (NEGATIVE); HCT - HEMATOCRIT 42.5 % (37.0-47.0); HGB - HEMOGLOBIN 13.4 g/dL (12.0-16.0); KETONES,URINE (UA) NEGATIVE (NEGATIVE); LEUKOCYTE ESTERASE, URINE NEGATIVE (NEGATIVE); LYMPHOCYTES # (AUTO) 2.8 10^3/uL (1.5-3.5); LYMPHOCYTES % (AUTO) 39.7 %; MEAN CORPUSCULAR HEMOGLOBIN 28.3 pg (27.0-31.0); MEAN CORPUSCULAR HGB CONC 31.5 g/dL (32.0-36.0); MEAN CORPUSCULAR VOLUME 89.9 fL (81.0-99.0); MEAN PLATELET VOLUME 9.8 fL (7.9-10.8); MONOCYTES # (AUTO) 0.5 10^3/uL (0.0-1.0); MONOCYTES % (AUTO) 6.4 %; NEUTROPHILS # (AUTO) 3.7 10^3/uL (1.5-6.6); NEUTROPHILS % (AUTO) 52.1 %; NITRITE,URINE NEGATIVE (NEGATIVE); OCCULT BLOOD,URINE NEGATIVE (NEGATIVE); PLT - PLATELET COUNT 253 10^3/uL (130-450); PROTEIN,URINE NEGATIVE (NEGATIVE); RED BLOOD COUNT 4.73 10^6/uL (4.20-5.40); RED CELL DISTRIBUTION WIDTH 16.9 % (12.0-15.0); UROBILINOGEN,URINE 0.2 (NORMAL) E.U./dL (NORMAL); WHITE BLOOD COUNT 7.1 x10^3/uL (4.8-10.8)
[2020-10-15 11:33] LABS: CLARITY,URINE CLEAR (CLEAR)
[2020-10-15] MEDS ORDERED: HYDROmorphone 1 MG/ML CARPUJECT IVP STA ×2 (11:36→14:27)
[2020-10-15] MEDS ORDERED: KETOROLAC 30 MG/ML VIAL IVP STA (11:36)
[2020-10-15] MEDS ORDERED: SODIUM CHLORIDE 0.9% 1,000 ML IV STA ×2 (11:36→13:01)
[2020-10-15 11:46] LABS: HCG UR QUAL NEGATIVE
[2020-10-15 11:48] LABS: ALBUMIN 4.8 g/dL (3.2-5.5); ALBUMIN/GLOBULIN RATIO 1.3 (1.0-2.2); BILIRUBIN,TOTAL 0.9 mg/dL (0.2-1.0); CALCIUM 9.6 mg/dL (8.5-10.3); CREATININE 0.7 mg/dL (0.4-1.0); POTASSIUM 3.5 mmol/L (3.5-5.0); TOTAL PROTEIN 8.5 g/dL (6.7-8.2)
--- OUTSIDE RECORDS SUMMARY | 2020-10-15 11:49 | EXTERNAL MEDICAL SUMMARY RPT | Continuity of Care Document ---
:1995 Demographics Phone Unavailable Preferred Language Unknown Marital Status Unknown Mandaen Affiliation Unknown Race Unknown Ethnic Group Unknown Author Organization [place] Address [address] [place] [address] Phone Problems date description facility [id number] Supervision of with history [facility] of pre-term labor, second trimester Social History date description facility [id number]
--- NOTE | 2020-10-15 13:15 | Ultrasound Report ---
PROCEDURE: Abdomen Limited INDICATIONS: RLQ pain, eval ovaries/appendix TECHNIQUE: Real-time focused scanning was performed of the abdomen, with image documentation. COMPARISON: Pelvic ultrasound from the same date FINDINGS: The right lower quadrant was interrogated with a high megahertz linear transducer utilizin g graded compressions. The appendix is not visualized. IMPRESSION: The appendix is not visualized. This does not rule out acute appendicitis. Recommend clinical correla tion and consideration of CT of the abdomen and pelvis if there is significant suspicion of acute maura endicitis. Reviewed by: Jovanni Ayoub MD on 10/15/2020 1:13 PM PDT Approved by: Jovanni Ayoub MD on 10/15/2020 1:13 PM PDT Station ID: [id number]
--- NOTE | 2020-10-15 13:17 | Ultrasound Report ---
PROCEDURE: Pelvic w/Transvag+Doppler Comp INDICATIONS: pelvic pain, R TECHNIQUE: Real-time scanning was performed of the pelvic organs, with image documentation. Additional endovagi nal scanning was necessary due to incomplete visualization of the adnexal and endometrial structures by transabdominal scanning. COMPARISON: Right lower quadrant ultrasound from the same day. FINDINGS: No pathologic free abdominal or pelvic fluid. Uterus: Uterus is normal in size at 9.1 x 4.4 x 6.5 cm., With a uterine volume of 138 mL The endome trium is very thin. Ovaries: Right ovary measures 3.5 x 2.2 x 1.9 cm, with a volume of 7.8 mL. Left ovary measures 3.1 x 1.5 x 2.4 cm with a volume of 5.7 mL. There is bilateral intraovarian flow. No abnormal adnexal mass es. IMPRESSION: Unremarkable pelvic ultrasound. Reviewed by: Jovanni Ayoub MD on 10/15/2020 1:16 PM PDT Approved by: Jovanni Ayoub MD on 10/15/2020 1:16 PM PDT Station ID: [id number]
[2020-10-15 13:25] VITALS: BP 118/78
[2020-10-15 16:11] LABS: B. PARAPERTUSSIS- RESP PCR PAN NOT DETECTED; B. PERTUSSIS- RESP PCR PANEL NOT DETECTED; C. PNEUMONIAE- RESP PCR PANEL NOT DETECTED; CORONAVIRUS 229E-RESP PCR NOT DETECTED; CORONAVIRUS HKU1-RESP PCR NOT DETECTED; CORONAVIRUS NL63-RESP PCR NOT DETECTED; CORONAVIRUS OC43-RESP PCR NOT DETECTED; HUMAN METAPNEUMOVIRUS NOT DETECTED; INFLUENZA A- RESP PCR PANEL NOT DETECTED; INFLUENZA B - RESP PCR PANEL NOT DETECTED; M. PNEUMONIAE- RESP PCR PANEL NOT DETECTED; PARAINFLUENZA VIRUS 1 NOT DETECTED; PARAINFLUENZA VIRUS 2 NOT DETECTED; PARAINFLUENZA VIRUS 3 NOT DETECTED; PARAINFLUENZA VIRUS 4 NOT DETECTED; RHINOVIRUS/ENTEROVIRUS NOT DETECTED; RSV- RESP PCR PANEL NOT DETECTED; SARS-CoV-2 -RESP PCR PANEL NOT DETECTED
== END 2020-10-15 15:03 | disposition short-term general hospital (02) ==
LOC: ED 10:57
DX: O90.89 Other complications of the puerperium, not elsewhere classified (principal); R10.31 Right lower quadrant pain; R11.0 Nausea; Z20.822 Contact with and (suspected) exposure to COVID-19
CPT/HCPCS: 0202U; 36415; 76705; 76830; 76856; 80053; 81003; 81025; 83690; 85025; 93975; 96360; 96361; 96372; 99284; 99285; 81001; 87086

== ENCOUNTER 2020-10-15 15:03 | Outpatient (CLI) | payer OTHER | END 2020-10-15 15:04 | disposition short-term general hospital (02) | LOC: EMS 15:03 | DX: O90.89 Other complications of the puerperium, not elsewhere classified (principal); R10.31 Right lower quadrant pain; R11.10 Vomiting, unspecified | CPT/HCPCS: A0425; A0428 ==

== ENCOUNTER 2021-04-11 10:37 | Emergency (ER) | payer OTHER ==
[2021-04-11 10:48] VITALS: BP 130/73
--- NOTE | 2021-04-11 12:26 | ED Physician Documentation ---
PD HPI HEENT - Stated complaint Stated Complaint: CONGESTION/SORE THROAT - Chief complaint Chief Complaint: Resp - History obtained from History obtained from: Patient - Additional information Additional information: Sick since last night with nonproductive cough, low-grade fever, raspy throat and runny nose. Her children were sick with viral URI about a week ago. She has not been immunized against Covid. Review of Systems Constitutional: reports: Fever. denies: Chills, Myalgias Nose: reports: Rhinorrhea / runny nose Throat: reports: Sore throat Respiratory: reports: Cough. 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 - Present Medications Home Medications: Ambulatory Orders Medication Instructions Recorded Confirmed Benzonatate [Tessalon] 200 mg PO QID PRN #20 cap 04/11/21 guaiFENesin/CODEINE [Robitussin AC] 5 - 10 ml PO Q6H PRN #120 ml 04/11/21 - Allergies Allergies/Adverse Reactions: Allergies Allergy/AdvReac Type Severity Reaction Status Date / Time No Known Drug Allergies Allergy Verified 04/11/21 10:48 - Social History Does the pt smoke?: No Smoking Status: Never smoker Does the pt drink ETOH?: No Does the pt have substance abuse?: No - Immunizations Immunizations are current?: Yes - POLST Patient has POLST: No PD ED PE NORMAL - Vitals Vital signs reviewed: Yes - General General: Alert and oriented X 3, No acute distress - HEENT HEENT: Pharynx benign - Neck Neck: Supple, no meningeal sign, No bony TTP - Cardiac Cardiac: RRR, No murmur - Respiratory Respiratory: No respiratory distress, Clear bilaterally - Derm Derm: No rash - Neuro Neuro: Alert and oriented X 3, Normal speech Results - Vitals Vitals: Vital Signs - 24 hr 04/11/21 10:44 Temperature 36.4 C L Heart Rate 88 Respiratory 14 Rate Blood Pressure 130/73 O2 Saturation 98 Oxygen O2 Source Room air PD MEDICAL DECISION MAKING - ED course ED course: 25-year-old woman with what seems like a ahe-hv-jyx-mill viral URI with cough. Syndrome is inconsistent with strep. Covid test pending. She discussed the need for home quarantine until testing is complete. Departure - Departure Disposition: 01 Home, Self Care Clinical Impression: Viral syndrome Condition: Good Record reviewed to determine appropriate education?: Yes Instructions: ED Viral Syndrome Prescriptions: guaiFENesin/CODEINE [Robitussin AC] 5 - 10 ml PO Q6H PRN #120 ml PRN Reason: Cough Benzonatate [Tessalon] 200 mg PO QID PRN #20 cap PRN Reason: Cough Comments: [place] [facility] [place] Return if not better in a week or follow-up with your doctor in that timeframe. Also return if worsening or if new symptoms develop for reevaluation. You have a Covid test pending. You need to self quarantine until the result is done and negative. Do not leave your house. Do not get near anybody. The results should be done in 48 to 72 hours. We will call with a positive result, the fastest way to get a negative result for confirmation though is to go to the hospital website at [email or web address], click on the my [facility] tab and sign up for the patient portal. If any friends or family get sick and would like to have a Covid test done, but do not have signs or symptoms that would necessitate being hospitalized, we encourage testing through our coronavirus swabbing station, call [phone] to schedule an appointment. Forms: Activity restrictions
== END 2021-04-11 12:28 | disposition home or self-care (01) ==
LOC: ED 10:37
DX: B34.9 Viral infection, unspecified (principal); Z20.822 Contact with and (suspected) exposure to COVID-19
CPT/HCPCS: 99283

== ENCOUNTER 2021-06-07 12:54 | Emergency (ER) | payer OTHER ==
--- NOTE | 2021-06-07 13:16 | ED Physician Documentation ---
History of Present Illness - Stated complaint Stated Complaint: BLEEDING,CRAMPING,VOMITING,+PREG - Chief complaint Chief Complaint: Abd Pain - Additonal information Additional information: 25-year-old female presents emergency department for evaluation of first trimester vaginal bleeding and lower abdominal cramping. G63. LMP 04/24/2021. She has had 2 spontaneous miscarriages in early . Has not yet established with an OB for this . Reports that yesterday afternoon she began having some generalized lower abdominal cramping but began having vaginal spotting around midnight that has been followed by heavier more curb progressive bleeding as well as clots. No dysuria urgency or frequency. No history of pertinent past surgical history. Previous pregnancies delivered vaginally. Patient is a A+ Review of Systems Constitutional: reports: Reviewed and negative Nose: reports: Reviewed and negative Throat: reports: Reviewed and negative Cardiac: reports: Reviewed and negative Respiratory: reports: Reviewed and negative GI: reports: Abdominal Pain, Nausea. 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 - Present Medications Home Medications: Ambulatory Orders Medication Instructions Recorded Confirmed Pnv No.95/Ferrous Fum/Folic AC 1 each PO DAILY 06/07/21 06/07/21 [ Caplet] - Allergies Allergies/Adverse Reactions: Allergies Allergy/AdvReac Type Severity Reaction Status Date / Time No Known Drug Allergies Allergy Verified 06/07/21 12:59 - Social History Does the pt smoke?: No Smoking Status: Never smoker Does the pt drink ETOH?: No Does the pt have substance abuse?: No - Immunizations Immunizations are current?: Yes - POLST Patient has POLST: No PD ED PE NORMAL - General General: Alert and oriented X 3, No acute distress - HEENT HEENT: PERRL - Cardiac Cardiac: RRR, No murmur - Respiratory Respiratory: No respiratory distress - Abdomen Abdomen: Normal bowel sounds, Soft. No: Non tender (Mild nonfocal lower abdominal tenderness. No guarding or rebound.) - Back Back: No CVA TTP, No spinal TTP - Derm Derm: Normal color Results - Vitals Vitals: Vital Signs - 24 hr 06/07/21 12:56 Temperature 36.3 C L Heart Rate 86 Respiratory 16 Rate Blood Pressure 136/87 H O2 Saturation 100 Oxygen O2 Source Room air - Labs Labs: Laboratory Tests 06/07/21 06/07/21 06/07/21 13:18 13:22 13:22 WBC 8.6 RBC 4.12 L Hgb 12.0 Hct 36.8 L MCV 89.3 MCH 29.1 MCHC 32.6 RDW 14.0 Plt Count 237 MPV 10.5 Neut # (Auto) 5.4 Lymph # (Auto) 2.6 [place] # (Auto) 0.4 Eos # (Auto) 0.1 Baso # (Auto) 0.0 Absolute Nucleated RBC 0.00 Nucleated RBC % 0.0 Sodium 134 L Potassium 3.5 Chloride 101 Carbon Dioxide 22 Anion Gap 11.0 BUN 9 Creatinine 0.5 Estimated GFR (MDRD) 150 Glucose 93 Calcium 8.7 Total Bilirubin 0.6 AST 15 ALT 14 Alkaline Phosphatase 65 Total Protein 7.2 Albumin 3.7 Globulin 3.5 Albumin/Globulin Ratio 1.1 Lipase 29 HCG, Quant Urine Color YELLOW Urine Clarity CLEAR Urine pH 7.0 Ur Specific Kevin 1.025 Urine Protein NEGATIVE Urine Glucose (UA) NEGATIVE Urine Ketones NEGATIVE Urine Occult Blood NEGATIVE Urine Nitrite NEGATIVE Urine Bilirubin NEGATIVE Urine Urobilinogen 0.2 (NORMAL) Ur Leukocyte Esterase NEGATIVE Ur Microscopic Review NOT INDICATED Urine Culture Comments NOT INDICATED 06/07/21 13:22 WBC RBC Hgb Hct MCV MCH MCHC RDW Plt Count MPV Neut # (Auto) Lymph # (Auto) [place] # (Auto) Eos # (Auto) Baso # (Auto) Absolute Nucleated RBC Nucleated RBC % Sodium Potassium Chloride Carbon Dioxide Anion Gap BUN Creatinine Estimated GFR (MDRD) Glucose Calcium Total Bilirubin AST ALT Alkaline Phosphatase Total Protein Albumin Globulin Albumin/Globulin Ratio Lipase HCG, Quant 51931.00 Urine Color Urine Clarity Urine pH Ur Specific Kevin Urine Protein Urine Glucose (UA) Urine Ketones Urine Occult Blood Urine Nitrite Urine Bilirubin Urine Urobilinogen Ur Leukocyte Esterase Ur Microscopic Review Urine Culture Comments - Rads (name of study) OB US Radiology: Final report received (Corpus luteal cyst measuring in greatest diameter 2.9 cm. Small subchorionic hemorrhage. 6-week 1 day IUP.) PD MEDICAL DECISION MAKING - ED course Complexity details: reviewed results, re-evaluated patient, considered differential, d/w patient ED course: 25-year-old female presents the emergency department for evaluation of vaginal bleeding the first trimester . LMP was November 7. Screening labs today are unremarkable. She is a positive. Urine shows no signs of bacteria or infection. A screening ultrasound confirms an IUP measuring approximately 6 weeks 1 day. There was an associated small subchorionic hemorrhage. No findings suggestive of ectopic. The findings were discussed with the patient. Because she has not yet been able to establish with an OB she was advised to return in 3 days for a hormone level recheck. This would be the . She is encouraged to continue to find and OB. Otherwise emergent return precautions were discussed. Departure - Departure Disposition: 01 Home, Self Care Clinical Impression: Threatened miscarriage in early Subchorionic hemorrhage in first trimester Qualifiers: Fetus number: single or unspecified fetus Qualified Code(s): O41.8X10 - Other specified disorders of amniotic fluid and membranes, first trimester, not applicable or unspecified; O46.8X1 - Other antepartum hemorrhage, first trimester Condition: Stable Record reviewed to determine appropriate education?: Yes Instructions: ED Miscarriage Poss Comments: Mari huerta are seen in the emergency department today for concerns of vaginal bleeding in the first trimester . Today the ultrasound shows that your fetus is approximately 6 weeks 1 day along. It is too soon for us to see cardiac activity. The ultrasound did show a very small subchorionic hemorrhage. This can be a threat to the . Your hormone level today was more than 20,000. I would like you to return on the to have your hCG level rechecked. I would like you to try and establish with an OB before then but if not then come back to the ER. We do need to see rising hormone levels in to determine if this is going to progress normally. If at any point you develop sudden severe lower abdominal pain, have severe vaginal bleeding or saturate a menstrual pad every hour for for 6 more hours, have any fainting episodes or racing heart then please return immediately to the ER for second evaluation.
[2021-06-07 13:32] LABS: BASOPHILS % (AUTO) 0.4 %; EOSINOPHILS # (AUTO) 0.1 10^3/uL (0.0-0.7); EOSINOPHILS % (AUTO) 0.7 %; HCT - HEMATOCRIT 36.8 % (37.0-47.0); LYMPHOCYTES # (AUTO) 2.6 10^3/uL (1.5-3.5); LYMPHOCYTES % (AUTO) 30.1 %; MEAN CORPUSCULAR HEMOGLOBIN 29.1 pg (27.0-31.0); MEAN CORPUSCULAR HGB CONC 32.6 g/dL (32.0-36.0); MEAN CORPUSCULAR VOLUME 89.3 fL (81.0-99.0); MEAN PLATELET VOLUME 10.5 fL (7.9-10.8); MONOCYTES # (AUTO) 0.4 10^3/uL (0.0-1.0); MONOCYTES % (AUTO) 5.1 %; NEUTROPHILS # (AUTO) 5.4 10^3/uL (1.5-6.6); NEUTROPHILS % (AUTO) 63.5 %; PLT - PLATELET COUNT 237 10^3/uL (130-450); RED BLOOD COUNT 4.12 10^6/uL (4.20-5.40); WHITE BLOOD COUNT 8.6 x10^3/uL (4.8-10.8)
[2021-06-07 13:39] LABS: BILIRUBIN,URINE NEGATIVE (NEGATIVE); GLUCOSE, URINE (UA) NEGATIVE (NEGATIVE); KETONES,URINE (UA) NEGATIVE (NEGATIVE); LEUKOCYTE ESTERASE, URINE NEGATIVE (NEGATIVE); NITRITE,URINE NEGATIVE (NEGATIVE); OCCULT BLOOD,URINE NEGATIVE (NEGATIVE); PROTEIN,URINE NEGATIVE (NEGATIVE); UROBILINOGEN,URINE 0.2 (NORMAL) E.U./dL (NORMAL)
[2021-06-07 13:44] LABS: CLARITY,URINE CLEAR (CLEAR)
[2021-06-07 13:45] LABS: ALBUMIN 3.7 g/dL (3.2-5.5); ALBUMIN/GLOBULIN RATIO 1.1 (1.0-2.2); BILIRUBIN,TOTAL 0.6 mg/dL (0.2-1.0); CALCIUM 8.7 mg/dL (8.5-10.3); CREATININE 0.5 mg/dL (0.4-1.0); POTASSIUM 3.5 mmol/L (3.5-5.0); TOTAL PROTEIN 7.2 g/dL (6.7-8.2)
[2021-06-07] MEDS ORDERED: ONDANSETRON ODT 4 MG TABLET TL STA (14:36)
[2021-06-07 15:40] VITALS: BP 113/69
--- NOTE | 2021-06-07 15:49 | Ultrasound Report ---
PROCEDURE: OB First Trimester INDICATIONS: bleeding and cramping; establish IUP OUTSIDE/PRIOR DATING DATA: Last menstrual period (LMP): 05/04/2021. LMP-based estimated date of delivery (AMRITA): 01/29/2022. First dating scan (date and location): Current study, 06/07/2021. Estimated date of delivery (AMRITA) from first dating scan: 01/30/2022. The below data below was generated using the first trimester ultrasound AMRITA of 01/30/2022 TECHNIQUE: Real-time scanning was performed of the fetus and maternal pelvic organs, with image documentation. COMPARISON: None during this FINDINGS: Embryo: The gestational sac contains a yolk sac and pole. The average crown-rump length of the pole is 0.47 cm corresponding to a 6 week 1 day +/- 4 day gestation. Heart rate: Between 113 and 117 bpm Measurement variability in dating: +/- 4 weeks by LMP, +/- 7 days by mean sac diameter (use before 6 weeks gestation if crown-rump length not able to be measured), +/- 5 days by crown-rump length (6-12 weeks gestation). Maternal organs: Anteverted uterus contains a fundal gestational sac. There are at least 2 surroundi ng fluid collections encompassing about one third of the sac circumference. The cervix appears closed . There is a left ovarian corpus luteum. The right ovary was not seen.. IMPRESSION: 1. There is a single living intrauterine with a heart rate between 113 and 117 bpm. 2. Estimated gestational age by crown-rump length is 6 weeks 1 day and estimated due date is 2. 3. Moderate-sized perigestational hemorrhage, but closed cervix. Reviewed by: Danielle Quiroga MD on 06/07/2021 3:48 PM PST Approved by: Danielle Quiroga MD on 06/07/2021 3:48 PM PST Station ID: [id number]
== END 2021-06-07 15:41 | disposition home or self-care (01) ==
LOC: ED 12:54
DX: O46.8X1 Other antepartum hemorrhage, first trimester (principal); Z3A.01 Less than 8 weeks gestation of pregnancy
CPT/HCPCS: 36415; 76801; 76817; 80053; 81003; 83690; 84702; 85025; 99283; 99284; Q0162; 81001; 87086

== ENCOUNTER 2021-06-10 12:00 | Emergency (ER) | payer OTHER ==
[2021-06-10 12:05] VITALS: BP 129/70
--- NOTE | 2021-06-10 13:39 | ED Physician Documentation ---
PD HPI FEMALE - Stated complaint Stated Complaint: FOLLOW UP - Chief complaint Chief Complaint: Abd Pain - History obtained from History obtained from: Patient - History of Present Illness Timing - onset: How many days ago (2) Timing - duration: Days (2) Timing - details: Abrupt onset, Now resolved Associated symptoms: Pelvic pain, Vaginal bleeding Contributing factors: Similar symptoms before: Diagnosis (threatened miscarriage) Recently seen: Emergency Dept - Additional information Additional information: 25-year-old female with early seen in the emergency department 2 days ago with bleeding and cramping at the time an ultrasound was done showing a 6- week 3-day fetus. There is some question of whether cardiac activity was seen or not and the patient was asked to come back to the Ed for a repeat hcG. She indicates that she has had resolution of her symptoms. Review of Systems Constitutional: denies: Fever Ears: denies: Ear pain Nose: denies: Congestion Throat: denies: Sore throat Cardiac: denies: Chest pain / pressure, Palpitations Respiratory: denies: Dyspnea, Cough GI: reports: Nausea. 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 - Present Medications Home Medications: Ambulatory Orders Medication Instructions Recorded Confirmed Pnv No.95/Ferrous Fum/Folic AC 1 each PO DAILY 06/07/21 06/07/21 [ Caplet] - Allergies Allergies/Adverse Reactions: Allergies Allergy/AdvReac Type Severity Reaction Status Date / Time No Known Drug Allergies Allergy Verified 06/10/21 12:05 - Social History Does the pt smoke?: No Smoking Status: Never smoker Does the pt drink ETOH?: No Does the pt have substance abuse?: No - Immunizations Immunizations are current?: Yes - POLST Patient has POLST: No PD ED PE NORMAL - Vitals Vital signs reviewed: Yes (normal ) - General General: Alert and oriented X 3, No acute distress, Well developed/nourished - HEENT HEENT: Atraumatic, PERRL, EOMI - Respiratory Respiratory: No respiratory distress - Derm Derm: Normal color, Warm and dry, No rash - Extremities Extremities: No deformity, No edema - Neuro Neuro: Alert and oriented X 3, modeling manager 2-12 intact, No motor deficit, No sensory deficit, Normal speech Eye Opening: Spontaneous Motor: Obeys Commands Verbal: Oriented GCS Score: 15 - Psych Psych: Normal mood, Normal affect Results - Vitals Vitals: Vital Signs - 24 hr 06/10/21 12:02 Temperature 36.4 C L Heart Rate 78 Respiratory 16 Rate Blood Pressure 129/70 O2 Saturation 98 Oxygen O2 Source Room air - Labs Labs: Laboratory Tests 06/10/21 12:50 HCG, Quant 91937.00 PD MEDICAL DECISION MAKING - ED course Complexity details: reviewed results, re-evaluated patient, considered differential, d/w patient ED course: 25-year-old female with a recent threatened miscarriage with bleeding and cramping had a viable fetus on ultrasound examination she had a quantitative hCG in the 20,000 range and today it is 31,812. The patient is reassured. 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 Departure - Departure Disposition: 01 Home, Self Care Clinical Impression: Early stage of Condition: Stable Instructions: ED Preg Established Normal Sxs Follow-Up: [facility] [Provider Group] Comments: Mari, today your hCG is elevated to 31,812. This is a reassuring number as it indicates normal progression of your . Follow-up with [facility] for establishment of obstetrical care within the next month. Take your pre-renny vitamins regularly. Discharge Date/Time: 06/10/21 14:25
== END 2021-06-10 14:25 | disposition home or self-care (01) ==
LOC: ED 12:00
DX: Z34.91 Encounter for supervision of normal pregnancy, unspecified, first trimester (principal)
CPT/HCPCS: 36415; 84702

== ENCOUNTER 2021-06-27 20:54 | Outpatient (CLI) | payer OTHER ==
--- NOTE | 2021-06-28 17:35 | Ultrasound Report ---
PROCEDURE: OB First Trimester w/TV INDICATIONS: SUPERVISION NORMAL OUTSIDE/PRIOR DATING DATA: Last menstrual period (LMP): 04/24/2021. LMP-based estimated date of delivery (AMRITA): 01/29/2022. First dating scan (date and location): 06/07/2021. Estimated date of delivery (AMRITA) from first dating scan: 01/30/2022. The below data below was generated using the ultrasound AMRITA of 01/30/2022. TECHNIQUE: Real-time scanning was performed of the fetus and maternal pelvic organs, with image documentation. Endovaginal scanning was also performed to better visualize the fetus and maternal ovaries. COMPARISON: OB ultrasound, 06/07/2021 FINDINGS: Embryo: [place]-rump measures 1.21 cm, corresponding to ultrasound AMRITA 9 weeks 1 days. Gestational bleeding sites are noted measuring 2.0 x 1.3 x 2.8 cm and 1.1 x 0.7 x 11.1 cm. Heart rate: 176 BPM. Measurement variability in dating: +/- 4 weeks by LMP, +/- 7 days by mean sac diameter (use before 6 weeks gestation if crown-rump length not able to be measured), +/- 5 days by crown-rump length (6-12 weeks gestation). Maternal organs: There is a corpus due to cyst in the left ovary. IMPRESSION: 1. A single living IUP with appropriate interval growth. 2. Small perigastric gestational bleeding sites. 3. A corpus sclerosis cyst in the left ovary. Reviewed by: Jose Cho MD on 06/28/2021 5:33 PM PST Approved by: Jose Cho MD on 06/28/2021 5:33 PM PST Station ID: [id number]
== END 2021-06-27 20:55 | disposition home or self-care (01) ==
LOC: DI 20:54
PROVIDERS: ATTEND Obstetrics & Gynecology
DX: O20.0 Threatened abortion (principal); O34.80 Maternal care for other abnormalities of pelvic organs, unspecified trimester; N83.12 Corpus luteum cyst of left ovary; Z3A.00 Weeks of gestation of pregnancy not specified

== ENCOUNTER 2021-07-05 14:28 | Outpatient (CLI) | payer OTHER ==
[2021-07-05 18:14] LABS: BASOPHILS # (AUTO) 0.1 10^3/uL (0.0-0.1); BASOPHILS % (AUTO) 0.5 %; EOSINOPHILS # (AUTO) 0.1 10^3/uL (0.0-0.7); EOSINOPHILS % (AUTO) 0.7 %; HCT - HEMATOCRIT 36.2 % (37.0-47.0); HGB - HEMOGLOBIN 11.6 g/dL (12.0-16.0); LYMPHOCYTES # (AUTO) 2.6 10^3/uL (1.5-3.5); MEAN CORPUSCULAR HEMOGLOBIN 28.7 pg (27.0-31.0); MEAN CORPUSCULAR VOLUME 89.6 fL (81.0-99.0); MEAN PLATELET VOLUME 11.5 fL (7.9-10.8); MONOCYTES # (AUTO) 0.6 10^3/uL (0.0-1.0); MONOCYTES % (AUTO) 5.7 %; NEUTROPHILS # (AUTO) 7.4 10^3/uL (1.5-6.6); NEUTROPHILS % (AUTO) 68.7 %; PLT - PLATELET COUNT 242 10^3/uL (130-450); RED BLOOD COUNT 4.04 10^6/uL (4.20-5.40); RED CELL DISTRIBUTION WIDTH 13.8 % (12.0-15.0); WHITE BLOOD COUNT 10.7 x10^3/uL (4.8-10.8)
[2021-07-06 08:56] LABS: HEPATITIS B SURFACE ANTIGEN NON-REACTIVE (NON-REACTIVE); HEPATITIS C ANTIBODY NON-REACTIVE (NON-REACTIVE)
[2021-07-06 15:31] LABS: HIV AG/AB 4TH GEN NON-REACTIVE (NON-REACTIVE)
== END 2021-07-05 14:29 | disposition home or self-care (01) ==
LOC: LAB.N 14:28
PROVIDERS: ATTEND Obstetrics & Gynecology
DX: Z36.89 Encounter for other specified antenatal screening (principal)
CPT/HCPCS: 36415; 85025; 86592; 86762; 86787; 86803; 86850; 86900; 86901; 87340; 87389

== ENCOUNTER 2021-07-06 08:00 | Outpatient (CLI) | payer OTHER ==
[2021-07-06 21:53] LABS: CHLAMYDIA TRACHOMATIS DNA NEGATIVE (NEGATIVE); NEISSERIA GONORRHOEAE DNA NEGATIVE (NEGATIVE); TRICHOMONAS VAGINALIS DNA NEGATIVE (NEGATIVE)
== END 2021-07-06 08:01 | disposition home or self-care (01) ==
LOC: LAB 08:00
PROVIDERS: ATTEND Nurse Practitioner Obstetrics & Gynecology
DX: Z11.3 Encounter for screening for infections with a predominantly sexual mode of transmission (principal)
CPT/HCPCS: 87491; 87591; 87661

== ENCOUNTER 2021-09-14 06:59 | Outpatient (CLI) | payer OTHER ==
--- NOTE | 2021-09-14 10:28 | Ultrasound Report ---
PROCEDURE: OB Detailed Eval INDICATIONS: SUPERVISION OF OUTSIDE/PRIOR DATING DATA: Last menstrual period (LMP): 04/24/2021. LMP-based estimated date of delivery (AMRITA): 01/29/2022. First dating scan (date and location): 05/29/2021, [facility]. Estimated date of delivery (AMRITA) from first dating scan: 01/30/2022. TECHNIQUE: Real-time scanning was performed of the fetus, with image documentation and biometric measurements. Endovaginal scanning: Not performed COMPARISON: First trimester ultrasound dated 06/27/2021 FINDINGS: General: A single living intrauterine gestation is present. Presentation: Vertex Placenta: Placental position is anterior, without previa. Amniotic fluid index: 14.2 cm heart rate: 140 beats per minute. Maternal cervical canal: 5.3 cm long; normal length is 2.5 cm or more. biometrics: Biparietal diameter: 4.8 cm, 20 weeks, 3 days Head circumference: 17.8 cm, 20 weeks, 2 days Abdominal circumference: 16.0 cm, 21 weeks, 1 day Femur length: 3.3 cm, 20 weeks, 2 days Estimated gestational age from initial scan: 20 weeks, 2 days Composite gestational age from present scan: 20 weeks, 4 days Estimated weight and percentile: 371 g, 68.8% Measurement variability in biometric dating: +/- 10 days from 12-20 weeks gestation, +/- 2 weeks from 20-30 weeks gestation, +/- 3 weeks at 30 weeks gestation or later. Anatomic survey: Neuro: Ventricles are normal at less than 10 mm. Cisterna magna is normal at 3-11 mm. Cerebellum i s normal in size and morphology. Nuchal skin fold: Normal at less than 6 mm between 14 and 20 weeks gestational age. Face: Nose and lips, facial profile are normal. Spine: No evidence for spina bifida. Heart: 4-chambered heart is present, with normal ventricular outflow tracts. Diaphragm: Diaphragm is intact. Stomach: Left-sided stomach is present. Kidneys: No hydronephrosis. Normal is less than 5 mm in 2nd trimester, less than 7 mm in 3rd trimester. Cord: 3 vessel cord has orthotopic insertion. Bladder: Normal in size. Extremities: All 4 extremities are visualized. IMPRESSION: Single live intrauterine gestation with a composite gestational age of 20 weeks, 4 days which is conc ordant with dates by initial scan. No sonographic anatomic abnormalities. Reviewed by: Tiffanie Kumar MD on 09/14/2021 10:26 AM PDT Approved by: Tiffanie Kumar MD on 09/14/2021 10:26 AM PDT Station ID: [id number]
== END 2021-09-14 07:00 | disposition home or self-care (01) ==
LOC: DI 06:59
PROVIDERS: ATTEND Nurse Practitioner Obstetrics & Gynecology
DX: Z36.89 Encounter for other specified antenatal screening (principal); Z36.8A Encounter for antenatal screening for other genetic defects; Z34.02 Encounter for supervision of normal first pregnancy, second trimester; Z3A.20 20 weeks gestation of pregnancy
CPT/HCPCS: 36415; 81511

== ENCOUNTER 2021-12-10 17:58 | Outpatient (CLI) | payer OTHER ==
[2021-12-10 18:35] LABS: BILIRUBIN,URINE NEGATIVE (NEGATIVE); GLUCOSE, URINE (UA) NEGATIVE (NEGATIVE); KETONES,URINE (UA) >=80 mg/dL (NEGATIVE); LEUKOCYTE ESTERASE, URINE TRACE (NEGATIVE); NITRITE,URINE NEGATIVE (NEGATIVE); OCCULT BLOOD,URINE NEGATIVE (NEGATIVE); PROTEIN,URINE NEGATIVE (NEGATIVE); UROBILINOGEN,URINE 0.2 (NORMAL) E.U./dL (NORMAL)
[2021-12-10 18:56] LABS: RUPTURE OF MEMBRANES PLUS NEGATIVE (NEGATIVE)
[2021-12-10 18:57] LABS: CLARITY,URINE HAZY (CLEAR)
[2021-12-10 18:58] LABS: BACTERIA,URINE Rare /HPF (None Seen); RBC,URINE 0-5 /HPF (0-5); SQUAMOUS EPITHELIAL CELL,UR MANY Squamous (<= Few)
[2021-12-10] MEDS ORDERED: TERBUTALINE 1 MG/ML VIAL SUBQ ONE ×2 (19:05→20:49)
[2021-12-10] MEDS ORDERED: LACTATED RINGERS 1,000 ML IV ONE (19:05)
[2021-12-10] MEDS ORDERED: BETAMETHASONE 30 MG/5 ML VIAL IM ONE (19:24)
--- NOTE | 2021-12-10 19:40 | Ultrasound Report ---
Please see the report for the limited OB ultrasound study which was ordered concurrently with this ex am. The transvaginal images included in that examination in PACS, and all of the pertinent findings a re described in that report. Reviewed by: Darshan Monk MD on 12/10/2021 7:39 PM PDT Approved by: Darshan Monk MD on 12/10/2021 7:39 PM PDT Station ID: [id number]
--- NOTE | 2021-12-10 19:41 | Ultrasound Report ---
PROCEDURE: OB Limited INDICATIONS: contractions OUTSIDE/PRIOR DATING DATA: Last menstrual period (LMP): 05/04/2021. LMP-based estimated date of delivery (AMRITA): 01/29/2022. First dating scan (date and location): 06/07/2021. Estimated date of delivery (AMRITA) from first dating scan: 01/30/2022. The below data below was generated using the ultrasound the right AMRITA of 01/30/2022 TECHNIQUE: Real-time scanning was performed of the fetus, with image documentation. Endovaginal scanning: Performed. COMPARISON: 11/16/2021 FINDINGS: A single living intrauterine gestation is present. Presentation: Vertex Placenta: Placental position is anterior, without previa. Amniotic fluid index: 12.5 cm, normal for gestational age. heart rate: 129 beats per minutes. Maternal cervical canal: 5 cm long; normal length is 2.5 cm or more. IMPRESSION: Single live intrauterine gestation. Normal JUSTINA. Cervix is closed and normal in length. Reviewed by: Darshan Monk MD on 12/10/2021 7:39 PM PDT Approved by: Darshan Monk MD on 12/10/2021 7:39 PM PDT Station ID: [id number]
[2021-12-10 19:42] LABS: BASOPHILS % (AUTO) 0.3 %; EOSINOPHILS # (AUTO) 0.1 10^3/uL (0.0-0.7); EOSINOPHILS % (AUTO) 0.5 %; HCT - HEMATOCRIT 29.1 % (37.0-47.0); HGB - HEMOGLOBIN 9.6 g/dL (12.0-16.0); LYMPHOCYTES # (AUTO) 2.8 10^3/uL (1.5-3.5); LYMPHOCYTES % (AUTO) 23.8 %; MEAN CORPUSCULAR HEMOGLOBIN 27.4 pg (27.0-31.0); MEAN CORPUSCULAR VOLUME 83.1 fL (81.0-99.0); MEAN PLATELET VOLUME 11.5 fL (7.9-10.8); MONOCYTES # (AUTO) 0.8 10^3/uL (0.0-1.0); MONOCYTES % (AUTO) 6.7 %; NEUTROPHILS # (AUTO) 8.2 10^3/uL (1.5-6.6); NEUTROPHILS % (AUTO) 68.3 %; PLT - PLATELET COUNT 205 10^3/uL (130-450); RED CELL DISTRIBUTION WIDTH 13.6 % (12.0-15.0); WHITE BLOOD COUNT 11.9 x10^3/uL (4.8-10.8)
[2021-12-10] MEDS ORDERED: FERRIC GLUCONATE 125 MG in SODIUM CHLORIDE 0.9% 100ML 100 ML IV ONE (20:04)
--- NOTE | 2021-12-10 20:04 | PROVIDER PROGRESS NOTE ---
- HPI Chief Complaint: Labor Current : Vital Signs Temperature 37.1 C 12/10/21 18:15 Heart Rate 90 12/10/21 18:15 Respiratory Rate 20 12/10/21 18:15 Blood Pressure 118/63 12/10/21 18:15 Temperature 37.1 C 12/10/21 18:15 Heart Rate 90 12/10/21 18:15 Respiratory Rate 20 12/10/21 18:15 Blood Pressure 118/63 12/10/21 18:15 O2 Saturation - Procedures OB Procedure Performed: NST Diagnosis/Indication for NST: labor NST Procedure: NST Procedure Start Time 07:25 Stop Time 07:50 - Plan Plan: Mari Morrison is a 26yo who presents to [facility] with c/o contractions. She states she has been nigel uncomfortably for the past 48 hours and they were significant enough to keep her up throughout the night last night. She reports pain specifically in her lower back with menstrual like cramping in her pelvis. She reports she has been drinking a lot of water and eating ice throughout the day today and resting as much as she can but the pain has persisted. She also states last night she felt like she was urinating small amounts but when she checked she did not need to urinate however there seemed to be a few wet drops in her underwear. She states she is able to walk and talk through the contractions but they definitely became more painful throughout the day today. She denies vaginal bleeding. She has not recently had intercourse and the last time she had intercourse was approximately 72 hours ago. She reports +FM. She denies urinary symptoms. Reports normal bowel movements. She denies vaginal discharge or irritation. NST performed 12/10/2021 NST read 12/10/2021 NST reactive. FHR baseline 150, moderate variability, + accels, no decels Contractions palpate mild every 7 minutes with soft resting tone FFN: POSITIVE ROM+: NEGATIVE Transvaginal cervical length: 5cm and closed, JUSTINA 12.5 SVE closed/thick/high, medium with repeat in 2 hours closed/thick/high, medium UA: +ketones, + leukocytes, + squamous cells, - nitrates, - blood, no culture indicated GC/CT: pending Vaginitis panel: pending CBC: -WBC: 11.9 -Hgb: 9.6 -Hct: 29.1 -PLT: 205 1.) .25mg terbutaline SQ administered with decreased frequency of contractions for 1 hour and return of contractions however pt does not rate them as significant as prior to initial dose of terbutaline. Repeat .25mg terbutaline with complete cessation of contractions. Continued monitoring x 1.5 hours with continued cessation of contractions. 2.) IV access with 1L LR administered over 1 hour 3.) Betamethasone 12mg IM once now, will return tomorrow for second injection 4.) Ferric gluconate 125mg IV ordered to be completed on Sunday as pharmacy is not in house and cannot administer it today. Assessment: 26yo @ 32.6wks gestation by LMP c/w 9.1wk U/S Threatened labor <37wks gestation Anemia complicating FHR Category I Plan: Pt released home with very clear instructions for when to return for evaluation. Pelvic rest x 2 weeks. Note provided for to stay home with her this week to allow her to rest as they do not have help from anyone with their 3 young children. Pt to return to [facility] tomorrow for 2nd dose of Betamethasone per protocol. Return again Sunday for iron infusion secondary to anemia. Reviewed plan of care with cone classifier tender physician who is in agreement with above plan. Pt verbalized understanding and agrees to above plan.She denies further questions or concerns at this time.
[2021-12-10] MEDS ORDERED: LACTATED RINGERS 1,000 ML IV SCH (20:25)
[2021-12-10 22:07] LABS: BACTERIAL VAGINOSIS DNA NEGATIVE (NEGATIVE); CANDIDA GLABRATA DNA NEGATIVE (NEGATIVE); CANDIDA GROUP DNA NEGATIVE (NEGATIVE); CANDIDA KRUSEI DNA NEGATIVE (NEGATIVE); TRICHOMONAS VAGINALIS DNA NEGATIVE (NEGATIVE)
[2021-12-10 22:40] VITALS: BP 119/60
[2021-12-10 23:03] LABS: CHLAMYDIA TRACHOMATIS DNA NEGATIVE (NEGATIVE); NEISSERIA GONORRHOEAE DNA NEGATIVE (NEGATIVE)
[2021-12-12] MEDS ORDERED: FERRIC GLUCONATE 125 MG in SODIUM CHLORIDE 0.9% 100ML 100 ML IV ONE (12:00)
== END 2021-12-10 22:41 | disposition home or self-care (01) ==
LOC: WFO 17:58 → FBP 18:00 → WFO 22:41
PROVIDERS: ATTEND Nurse Practitioner Obstetrics & Gynecology
DX: O47.03 False labor before 37 completed weeks of gestation, third trimester (principal); O99.013 Anemia complicating pregnancy, third trimester; Z3A.32 32 weeks gestation of pregnancy
CPT/HCPCS: 76815; 76817; 81001; 81514; 82731; 84112; 85025; 87491; 87591; 96360; 96372; 99215; J7120; 59025; 87086; 87661

== ENCOUNTER 2022-01-09 22:11 | Outpatient (CLI) | payer OTHER ==
[2022-01-10 00:46] VITALS: BP 122/71
--- NOTE | 2022-01-10 08:23 | PROVIDER PROGRESS NOTE ---
- HPI Chief Complaint: Labor Check Current : Vital Signs Temperature 37.0 C 01/09/22 22:19 Respiratory Rate 18 01/09/22 22:19 Blood Pressure 137/89 H 01/09/22 22:19 O2 Saturation 100 01/09/22 22:19 Temperature 37 C 01/10/22 00:44 Heart Rate 83 01/10/22 00:44 Respiratory Rate 18 01/10/22 00:44 Blood Pressure 122/71 01/10/22 00:44 O2 Saturation 100 01/09/22 22:19 - Procedures OB Procedure Performed: NST Diagnosis/Indication for NST: Other NST Procedure: NST Procedure Start Date 01/09/22 Start Time 22:24 Stop Time 23:00 Vibroacoustic Stimulation Used No - Plan Plan: S: Mari is a 26yo @ 37.1wks gestation who presents to [facility] with c/o contractions. She reports she has been experiencing contractions for the past 2 days but they are now more frequent and uncomfortable. She has a history of precipitous delivery and close-interval pregnancies so she is nervous about having a baby at home unplanned or in the car. She denies vaginal bleeding or leakage of fluid. She reports having some occasional light pink spotting but reports this has been happening for the past several weeks. She reports +FM and denies any other concerns today. O: SVE 2/long/high, posterior. Vertex. NST performed 01/09/2022 NST read 01/10/2022 NST reactive. FHR baseline 130s, moderate variability, + accels, no decels Contractions palpate mild to moderate every 3-5 minutes with soft resting tone via tocometry Pt ambulates x 2 hours and repeat SVE unchanged A: 26yo @ 37.1wks gestation False labor GBS negative Hx precipitous delivery P: Pt released home with precautions. Reviewed when to present and she states she feels good about going home at this time. Return PRN. Has scheduled visit 01/11/22. FINAL DIAGNOSIS: False labor >37wks gestation
== END 2022-01-10 00:45 | disposition home or self-care (01) ==
LOC: WFO 22:11 → FBP 22:13 → WFO 01-10 00:45
PROVIDERS: ATTEND Nurse Practitioner Obstetrics & Gynecology
DX: O47.1 False labor at or after 37 completed weeks of gestation (principal); Z3A.37 37 weeks gestation of pregnancy; Z87.898 Personal history of other specified conditions
CPT/HCPCS: 59025; 99215

== ENCOUNTER 2022-04-24 03:50 | Outpatient (CLI) | payer OTHER | END 2022-04-24 03:51 | disposition short-term general hospital (02) | LOC: EMS 03:50 | DX: R11.2 Nausea with vomiting, unspecified (principal); R68.83 Chills (without fever); R53.1 Weakness; R10.84 Generalized abdominal pain | CPT/HCPCS: A0425; A0427 ==

== ENCOUNTER 2022-09-19 16:43 | Emergency (ER) | payer OTHER ==
[2022-09-19 16:49] VITALS: BP 133/63
[2022-09-19 17:25] LABS: BASOPHILS # (AUTO) 0.1 10^3/uL (0.0-0.1); BASOPHILS % (AUTO) 0.5 %; EOSINOPHILS # (AUTO) 0.1 10^3/uL (0.0-0.7); EOSINOPHILS % (AUTO) 0.9 %; HCT - HEMATOCRIT 35.9 % (37.0-47.0); HGB - HEMOGLOBIN 11.3 g/dL (12.0-16.0); LYMPHOCYTES # (AUTO) 2.7 10^3/uL (1.5-3.5); LYMPHOCYTES % (AUTO) 24.5 %; MEAN CORPUSCULAR HEMOGLOBIN 27.2 pg (27.0-31.0); MEAN CORPUSCULAR HGB CONC 31.5 g/dL (32.0-36.0); MEAN CORPUSCULAR VOLUME 86.3 fL (81.0-99.0); MEAN PLATELET VOLUME 10.6 fL (7.9-10.8); MONOCYTES # (AUTO) 0.7 10^3/uL (0.0-1.0); MONOCYTES % (AUTO) 6.2 %; NEUTROPHILS # (AUTO) 7.4 10^3/uL (1.5-6.6); NEUTROPHILS % (AUTO) 67.6 %; PLT - PLATELET COUNT 283 10^3/uL (130-450); RED BLOOD COUNT 4.16 10^6/uL (4.20-5.40); RED CELL DISTRIBUTION WIDTH 15.5 % (12.0-15.0)
[2022-09-19 17:40] LABS: ALBUMIN 3.5 g/dL (3.2-5.5); ALBUMIN/GLOBULIN RATIO 0.9 (1.0-2.2); ALKALINE PHOSPHATASE 68 IU/L (42-121); ALT ALANINE AMINOTRANSFERASE 12 IU/L (10-60); AST ASPARTATE AMINOTRANSFERASE 13 IU/L (10-42); BILIRUBIN,TOTAL < 0.2 mg/dL (0.2-1.0); BUN - BLOOD UREA NITROGEN 11 mg/dL (6-20); CALCIUM 9.1 mg/dL (8.5-10.3); CARBON DIOXIDE - CO2 24 mmol/L (21-32); CHLORIDE 106 mmol/L (101-111); CREATININE 0.6 mg/dL (0.4-1.0); GFR - MDRD 121 (>89); GLUCOSE 85 mg/dL (70-100); LIPASE 40 U/L (22-51); POTASSIUM 3.7 mmol/L (3.5-5.0); SODIUM 137 mmol/L (135-145); TOTAL PROTEIN 7.2 g/dL (6.7-8.2)
--- NOTE | 2022-09-19 20:11 | Ultrasound Report ---
PROCEDURE: OB First Trimester w/TV INDICATIONS: pelvic pain vag bleed, 11 weeks? OUTSIDE/PRIOR DATING DATA: Last menstrual period (LMP): Unknown. LMP-based estimated date of delivery (AMRITA): Unknown. First dating scan (date and location): 09/19/2022. Estimated date of delivery (AMRITA) from first dating scan: 05/01/2023. TECHNIQUE: Real-time scanning was performed of the fetus and maternal pelvic organs, with image documentation. Endovaginal scanning was also performed to better visualize the fetus and maternal ovaries. COMPARISON: None. FINDINGS: Embryo: Intrauterine gestational sac is seen with yolk sac and pole. [place]-rump length is 1.6 cm, compatible with an estimated gestational age of 8 weeks 0 days. A small perigestational sac hemor rhage is seen measuring 2.1 x 1.0 x 1.8 cm. Heart rate: 178 bpm Measurement variability in dating: +/- 4 weeks by LMP, +/- 7 days by mean sac diameter (use before 6 weeks gestation if crown-rump length not able to be measured), +/- 5 days by crown-rump length (6-12 weeks gestation). Maternal organs: Right ovarian cysts are seen measuring up to 1.9 and 1.6 cm respectively. A left 1.3 cm paraovarian cyst is present. Left ovary is unremarkable. IMPRESSION: Single live intrauterine with estimated gestational age of 8 weeks 0 days, giving an ultras ound AMRITA 05/01/2023. Concordant preliminary findings were conveyed to the ordering provider by the haunted history tour guide at the conc lusion of the exam. Reviewed by: Luis Manuel Aaron MD on 09/19/2022 8:09 PM PDT Approved by: Luis Manuel Aaron MD on 09/19/2022 8:09 PM PDT Station ID: [id number]
== END 2022-09-19 19:26 | disposition left against medical advice (07) ==
LOC: ED 16:43
DX: Z53.29 Procedure and treatment not carried out because of patient's decision for other reasons (principal)
CPT/HCPCS: 36415; 80053; 83690; 84702; 85025

== ENCOUNTER 2023-03-08 10:22 | Outpatient (CLI) | payer OTHER ==
[2023-03-08 11:33] LABS: HCT - HEMATOCRIT 26.6 % (37.0-47.0); HGB - HEMOGLOBIN 8.1 g/dL (12.0-16.0); MEAN CORPUSCULAR HEMOGLOBIN 23.6 pg (27.0-31.0); MEAN CORPUSCULAR HGB CONC 30.5 g/dL (32.0-36.0); MEAN CORPUSCULAR VOLUME 77.6 fL (81.0-99.0); MEAN PLATELET VOLUME 10.5 fL (7.9-10.8); RED BLOOD COUNT 3.43 10^6/uL (4.20-5.40); WHITE BLOOD COUNT 9.4 x10^3/uL (4.8-10.8)
== END 2023-03-08 10:23 | disposition home or self-care (01) ==
LOC: LAB 10:22
PROVIDERS: ATTEND Nurse Practitioner Obstetrics & Gynecology
DX: Z36.9 Encounter for antenatal screening, unspecified (principal)
CPT/HCPCS: 36415; 82950; 85027

== ENCOUNTER 2023-03-18 18:38 | Outpatient (CLI) | payer OTHER ==
[2023-03-18 19:04] VITALS: BP 110/63; O2SAT 100
[2023-03-18 19:20] LABS: RUPTURE OF MEMBRANES PLUS NEGATIVE (NEGATIVE)
[2023-03-18 20:37] LABS: BILIRUBIN,URINE NEGATIVE (NEGATIVE); GLUCOSE, URINE (UA) NEGATIVE (NEGATIVE); KETONES,URINE (UA) NEGATIVE (NEGATIVE); LEUKOCYTE ESTERASE, URINE NEGATIVE (NEGATIVE); NITRITE,URINE NEGATIVE (NEGATIVE); OCCULT BLOOD,URINE NEGATIVE (NEGATIVE); PROTEIN,URINE TRACE mg/dL (NEGATIVE); UROBILINOGEN,URINE 0.2 (NORMAL) E.U./dL (NORMAL)
[2023-03-18 20:38] LABS: CLARITY,URINE CLEAR (CLEAR)
--- NOTE | 2023-03-19 05:00 | PROVIDER PROGRESS NOTE ---
- HPI Chief Complaint: Leakage of vaginal fluid Current : Current EDU 05/08/23 Gestation 32 Weeks and 5 Days 8 Vital Signs Temperature 36.9 C 03/18/23 18:50 Heart Rate 96 03/18/23 18:50 Respiratory Rate 16 03/18/23 18:50 Blood Pressure 110/63 03/18/23 18:50 Temperature 36.9 C 03/18/23 18:50 Heart Rate 96 03/18/23 18:58 Respiratory Rate 16 03/18/23 18:58 Blood Pressure 110/63 03/18/23 18:58 O2 Saturation 100 03/18/23 18:58 If not protocol: Oxygen Flow, liters/minute - Procedures OB Procedure Performed: NST NST Procedure: NST Procedure Start Date 03/18/23 Start Time 19:00 Stop Time 19:45 Vibroacoustic Stimulation Used No Patient States Movement Yes - Plan Plan: Mari is a 27yo @ 32.5wks gestation who presents to [facility] with c/o vaginal leakage of clear fluid. She reports she was walking in the grocery store with her son when she felt a small gush of fluid. She went to the bathroom and urinated and noted her pad was soaked with clear fluid. She reports when she stood up it had stopped but then after walking a short time she felt another small leak. She denies vaginal bleeding or contractions. She reports occasional BH contractions but states they just feel like mild tightening and nothing painful or consistent. She reports +FM. FHR baseline 140s, moderate variability, + accels, no decels Contractions palpate mild intermittently with soft resting tone ROM+ NEGATIVE UA: negative SVE closed/thick/high, posterior No leakage of fluid noted with exam Assessment: 27yo @ 39.5wks gestation ROM+ negative Vaginal discharge FHR Category I Plan: Pt relieved regarding results of ROM+. She denies continued leakage of fluid since arrival. Reviewed warning s/sx and when to present. Pt has emergency contact information. Pt released home with precautions. FINAL DIAGNOSIS: Vaginal discharge False labor <37wks gestation
== END 2023-03-18 20:35 | disposition home or self-care (01) ==
LOC: WFO 18:38 → FBP 18:40 → WFO 20:35
PROVIDERS: ATTEND Nurse Practitioner Obstetrics & Gynecology
DX: O99.891 Other specified diseases and conditions complicating pregnancy (principal); N89.8 Other specified noninflammatory disorders of vagina; O47.1 False labor at or after 37 completed weeks of gestation; Z3A.39 39 weeks gestation of pregnancy
CPT/HCPCS: 59025; 81001; 81003; 84112; 87086; 99213; 99215

== ENCOUNTER 2023-03-25 11:34 | Emergency (ER) | payer OTHER ==
[2023-03-25 11:39] VITALS: BP 129/64; O2SAT 96
--- NOTE | 2023-03-25 13:35 | ED Physician Documentation ---
History of Present Illness - Stated complaint Stated Complaint: DIZZY - Chief complaint Chief Complaint: Heent - Additonal information Additional information: 27-year-old female G7, who is currently 34 weeks presents to the emergency department for evaluation of vertigo. This has been occurring for the last several days. Mostly when she turns her head to the right or lays flat in bed. Some nausea no vomiting. She does have some muffled hearing in the right ear. No recent cough cold or congestion. No double vision, no headache, no falls or trauma. She is being followed by Beba Mai for her . She continues to have movement. No lower pelvic Pramine, vaginal bleeding loss of fluids. heart tones today in the ER are 170 Review of Systems Constitutional: denies: Fever Eyes: denies: Loss of vision Ears: reports: Other (Muffled hearing). 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) - Past Surgical History Past Surgical History: Yes /HOT METAL CAR OPERATOR: Dilation and currettage - Present Medications Home Medications: Ambulatory Orders Medication Instructions Recorded Confirmed Pnv No.95/Ferrous Fum/Folic AC 1 each PO DAILY 06/07/21 06/07/21 [ Caplet] - Allergies Allergies/Adverse Reactions: Allergies Allergy/AdvReac Type Severity Reaction Status Date / Time No Known Drug Allergies Allergy Verified 03/25/23 11:38 - Social History Does the pt smoke?: No Smoking Status: Never smoker Does the pt drink ETOH?: No Does the pt have substance abuse?: No - Immunizations Immunizations are current?: Yes - POLST Patient has POLST: No PD ED PE NORMAL - General General: Alert and oriented X 3, No acute distress, Well developed/nourished - HEENT HEENT: Atraumatic, Ears normal, Moist mucous membranes, Pharynx benign, Other (Positive Rudy-Hallpike on the right side) - Neck Neck: Supple, no meningeal sign - Cardiac Cardiac: RRR, No murmur - Respiratory Respiratory: No respiratory distress - Abdomen Abdomen: Non tender (Gravid uterus 4 cm above the umbilicus. Nontender lower pelvic), Other ( heart tones 170.) - Extremities Extremities: No deformity - Neuro Neuro: Alert and oriented X 3, foaming machine operator 2-12 intact, Other (Positive Rudy-Hallpike with maneuvering on the right side. Normal speech, normal neuro and cerebellar exam. Normal finger-nose. Normal gait.) Eye Opening: Spontaneous Motor: Obeys Commands Verbal: Oriented GCS Score: 15 Results - Vitals Vitals: Vital Signs - 24 hr 03/25/23 11:36 Temperature 36.8 C Heart Rate 80 Respiratory 18 Rate Blood Pressure 129/64 O2 Saturation 96 Oxygen O2 Source Room air PD Medical Decision Making - ED course Complexity details: d/w patient ED course: 27-year-old female who is incidentally 34 weeks presents emergency department for evaluation of several days of vertigo and dizziness. Mostly associated when laying supine or turning her head to the right. She did have a positive Rudy-Hallpike elicited on the right side today consistent with a peripheral etiology. She had a normal neurological and cerebellar exam otherwise. No evidence of acute otitis media. Given the advanced medication management options are limited. However I did discuss with patient the Zulay maneuver which she feels comfortable utilizing at home at the bedside. Regarding her she had heart tone of 170. No lower pelvic pain vaginal bleeding loss of fluids or cramping. Her vital signs are normal here in the emergency department without any concerning hypertension or evidence of preeclampsia. She will follow closely with her butadiene converter helper Beba Mai. The usual emergent return precautions for worsening symptoms was discussed. Departure - Departure Disposition: 01 Home, Self Care Clinical Impression: BPPV (benign paroxysmal positional vertigo) Qualifiers: Laterality: right Qualified Code(s): H81.11 - Benign paroxysmal vertigo, right ear Condition: Stable Record reviewed to determine appropriate education?: Yes Instructions: Vertigo Paroxysmal Positional Comments: Mari as discussed at the bedside you were seen today in the emergency department because you have been dizzy for the last several days especially when you turn your head to the right or lay supine. Your exam is consistent with a condition called benign positional paroxysmal vertigo. This is usually due to dysfunction of the inner ear such as crystals or stones that get out of whack in the ear canals. Because you are 34 weeks it does make managing this somewhat more difficult as some medications are not typically available to you. Please do the Zulay maneuver as shown on the handout and done at the bedside 3 times a day for the next several days. I expect that this will make your symptoms better. Please discuss this ED visit with Beba Tapia. Return to the ER if you develop slurred speech, have facial droop, fainting episodes, any concerns of pain in your lower abdomen, loss of fluids or vaginal bleeding or fail to have movement.
== END 2023-03-25 13:40 | disposition home or self-care (01) ==
LOC: ED 11:34
DX: O99.891 Other specified diseases and conditions complicating pregnancy (principal); H81.11 Benign paroxysmal vertigo, right ear; Z3A.34 34 weeks gestation of pregnancy
CPT/HCPCS: 99283

== ENCOUNTER 2023-04-07 21:57 | Outpatient (CLI) | payer OTHER ==
[2023-04-07 22:59] VITALS: BP 124/74; O2SAT 100
[2023-04-08] MEDS ORDERED: LACTATED RINGERS 1,000 ML IV ONE (00:08)
[2023-04-08 00:34] LABS: LYMPHOCYTES # (AUTO) 2.8 10^3/uL (1.5-3.5); MEAN CORPUSCULAR VOLUME 80.7 fL (81.0-99.0)
[2023-04-08 00:46] LABS: BASOPHILS % (AUTO) 0.3 %; EOSINOPHILS # (AUTO) 0.1 10^3/uL (0.0-0.7); EOSINOPHILS % (AUTO) 0.5 %; HCT - HEMATOCRIT 30.6 % (37.0-47.0); HGB - HEMOGLOBIN 9.5 g/dL (12.0-16.0); LYMPHOCYTES % (AUTO) 23.2 %; MEAN CORPUSCULAR HEMOGLOBIN 25.1 pg (27.0-31.0); MEAN PLATELET VOLUME 11.3 fL (7.9-10.8); MONOCYTES # (AUTO) 0.9 10^3/uL (0.0-1.0); MONOCYTES % (AUTO) 7.3 %; NEUTROPHILS # (AUTO) 8.1 10^3/uL (1.5-6.6); NEUTROPHILS % (AUTO) 67.4 %; PLT - PLATELET COUNT 199 10^3/uL (130-450); RED BLOOD COUNT 3.79 10^6/uL (4.20-5.40); RED CELL DISTRIBUTION WIDTH 22.7 % (12.0-15.0); WHITE BLOOD COUNT 11.9 x10^3/uL (4.8-10.8)
[2023-04-08 00:48] LABS: SLIDE REVIEW? Indicated
[2023-04-08 01:13] LABS: PLATELET ESTIMATE, MANUAL NORMAL (130-450,000) (NORMAL); PLATELET MORPHOLOGY NORMAL APPEARANCE (NORMAL)
[2023-04-08] MEDS ORDERED: BETAMETHASONE 30 MG/5 ML VIAL IM ONE (01:31)
--- NOTE | 2023-04-08 01:48 | PROVIDER PROGRESS NOTE ---
- HPI Chief Complaint: Labor Current : Current EDU 05/01/23 Gestation 36 Weeks and 5 Days 8 Para 4 Vital Signs Temperature 36.5 C 04/07/23 22:14 Respiratory Rate 17 04/07/23 22:14 Blood Pressure 124/74 04/07/23 22:14 O2 Saturation 100 04/07/23 22:14 Temperature 36.5 C 04/07/23 23:06 Heart Rate Respiratory Rate 17 04/07/23 22:14 Blood Pressure 124/74 04/07/23 22:14 O2 Saturation 100 04/07/23 22:14 If not protocol: Oxygen Flow, liters/minute - Procedures OB Procedure Performed: NST NST Procedure: NST Procedure Start Date 04/08/23 Start Time 22:10 Stop Time 00:21 Vibroacoustic Stimulation Used No Patient States Movement Yes Procedure Details: Mari presents to [facility] with c/o contractions. She states the contractions seemed mild to her but her concern was the frequency and duration of the contractions. She denies vaginal bleeding or leakage of fluid. She reports +FM. She denies urinary symptoms. She states she has consumed an adequate amount of water today. She denies constipation or diarrhea. Cervix 2/70/-3, posterior and vertex. Repeat SVE 2.5 hours later was unchanged. FHR baseline 140s, moderate variability, + accels, no decels Contractions palpate mild intermittently with soft resting tone UA - negative CBC - mild anemia Vaginitis panel collected - pending 1 LR administered over 1 hour and contractions decreased in both frequency and intensity. 12mg betamethasone IM administered as a precaution for lung maturity. Assessment: 27yo @ 35.2wks gestation Uterine irritability <37wks gestation Anemia Plan: Pt to return in 24 hours for repeat dosage of IM betamethasone. Pt released home with precautions. Pt has emergency contact number. pt verbalized understanding and agrees to above plan. She denies further questions or concerns at this time. FINAL DIAGNOSIS: False labor <37wks gestation
[2023-04-08 03:10] LABS: BACTERIAL VAGINOSIS DNA NEGATIVE (NEGATIVE); CANDIDA GLABRATA DNA NEGATIVE (NEGATIVE); CANDIDA GROUP DNA NEGATIVE (NEGATIVE); CANDIDA KRUSEI DNA NEGATIVE (NEGATIVE); TRICHOMONAS VAGINALIS DNA NEGATIVE (NEGATIVE)
== END 2023-04-08 02:00 | disposition home or self-care (01) ==
LOC: WFO 21:57 → FBP 21:58 → WFO 04-08 02:00
PROVIDERS: ATTEND Nurse Practitioner Obstetrics & Gynecology
DX: O47.03 False labor before 37 completed weeks of gestation, third trimester (principal); O99.013 Anemia complicating pregnancy, third trimester; Z3A.35 35 weeks gestation of pregnancy
CPT/HCPCS: 59025; 81514; 85025; 96360; 96372; 99215; J7120

== ENCOUNTER 2023-04-09 07:01 | Outpatient (CLI) | payer OTHER ==
[2023-04-09] MEDS ORDERED: BETAMETHASONE 30 MG/5 ML VIAL IM ONE (07:09)
[2023-04-09 07:25] VITALS: BP 116/66; O2SAT 99
--- NOTE | 2023-04-16 16:42 | PROVIDER PROGRESS NOTE ---
- HPI Chief Complaint: Other Current : Current EDU 05/01/23 Gestation 36 Weeks and 6 Days 7 Para 4 Vital Signs Temperature 36.7 C 04/09/23 07:13 Heart Rate 82 04/09/23 07:13 Respiratory Rate 16 04/09/23 07:13 Blood Pressure 116/66 04/09/23 07:13 Temperature 36.7 C 04/09/23 07:14 Heart Rate 82 04/09/23 07:14 Respiratory Rate 16 04/09/23 07:14 Blood Pressure 116/66 04/09/23 07:14 O2 Saturation 99 04/09/23 07:14 If not protocol: Oxygen Flow, liters/minute - Procedures NST Procedure: NST Procedure Start Time 22:10 Stop Time 00:21 Patient States Movement Yes Procedure Details: Betamethasone injection secondary to contractions.
== END 2023-04-09 07:35 | disposition home or self-care (01) ==
LOC: WFO 07:01 → FBP 07:02 → WFO 07:35
PROVIDERS: ATTEND Nurse Practitioner Obstetrics & Gynecology
DX: O47.03 False labor before 37 completed weeks of gestation, third trimester (principal); Z3A.36 36 weeks gestation of pregnancy
CPT/HCPCS: 96372; 99212

== ENCOUNTER 2023-04-12 21:12 | Observation (INO) | payer OTHER ==
[2023-04-13 06:09] VITALS: BP 115/63
--- NOTE | 2023-04-16 16:44 | HISTORY & PHYSICAL EXAMINATION ---
Admit History - Visit Reason Visit Reason: Contractions - : 8 Parity: 4 Premature: 0 Ectopic: 0 : 3 Care: positive: [facility] Risk/History: positive: labor <37 weeks Complications This : positive: Other Smoking Status: Never smoker - Mother's Labs Mother's Blood Type: positive: A Mother's RH: positive: Positive GBS: positive: Group B Step Negative Rubella Status: positive: Immune - HPI Current EDU 05/08/23 Gestation 36 Weeks and 3 Days 8 Para 3 Vital Signs Temperature 36.9 C 04/12/23 21:30 Heart Rate 86 04/12/23 21:30 Respiratory Rate 18 04/12/23 21:30 Blood Pressure 114/75 04/12/23 21:30 Temperature 36.9 C 04/13/23 05:04 Heart Rate 69 04/13/23 05:04 Respiratory Rate 18 04/13/23 05:04 Blood Pressure 115/63 04/13/23 05:04 O2 Saturation If not protocol: Oxygen Flow, liters/minute - NST Procedure NST Procedure Start Date 04/13/23 Start Time 04:33 Stop Time 04:56 Vibroacoustic Stimulation Used No - Results and Plan Findings/Impression: FHR baseline 140s, moderate variability, + accels, no decels Contractions palpate mild intermittently with soft resting tone Meds/Allgy - Home Medications Home Medications: Ambulatory Orders Medication Instructions Recorded Confirmed Pnv No.95/Ferrous Fum/Folic AC 1 each PO DAILY 06/07/21 06/07/21 [ Caplet] - Allergies Allergies/Adverse Reactions: Allergies Allergy/AdvReac Type Severity Reaction Status Date / Time No Known Drug Allergies Allergy Verified 03/25/23 11:38 Review of Systems - Constitutional Constitutional: denies: Fatigue, Fever, Chills, Malaise - Eyes Eyes: denies: Blurred vision, Spots in vision, Dipolpia - Cardiovascular Cariovascular: denies: Irregular heart rate, Palpitations, Chest pain, Edema - Respiratory Respiratory: denies: Cough, Wheezing, SOB at rest - Gastrointestinal Gastrointestinal: denies: Abdominal pain, Abdominal distention, Constipation, Diarrhea, Nausea, Vomiting - Genitourinary Genitourinary: denies: Dysuria, Frequency - Integumentary Integumentary: denies: Rash, Pruritis - Neurological Neurological: denies: Headache - Psychiatric Psychiatric: denies: Depression, Anxiety - Hematologic/Lymphatic Hematologic/Lymphatic: reports: Anemia Physical - Abdominal Exam Vital Signs: Temp Pulse Resp BP Pulse Ox O2 Flow Rate 36.9 C 69 18 115/63 04/13/23 05:04 04/13/23 05:04 04/13/23 05:04 04/13/23 05:04 Contraction Frequency (min/apart): intermittent Contraction Intensity: positive: Mild to moderate Uterine Resting Tone: positive: Soft - Monitoring Heart Rate Baseline: 140 Strip Review: positive: Category I - Presentation Presentation: positive: Vertex - Vaginal Exam Membranes: positive: Membranes intact Dilation (in cm): 5 Effacement (%): 50 Station: positive: -2 - Speculum Exam Speculum Exam Performed: positive: No Plan for Labor - Plan For Labor I expect patient to be DC'd or transferred within 96 hours.: Yes Plan for Labor: Mari is a 27yo @ 37wks gestation who presents to [facility] with c/o contractions. She reports nigel every 5-7 minutes for the past several hours. She rates the contractions 3-4/10 on a pain scale and states they are not overly uncomfortable but is worried about the frequency at which she is nigel. SVE 5/50/-2 and vertex with intact membranes. Repeat SVE in 2 hours unchanged Secondary to frequency of contractions, multigravida, advanced stage of dilation, patient was placed in observation x 6 hours. 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 SAB x 3. Denies any complications. thought she bled a lot. Last pap 06/[address] Hare at [facility]. Denies history of gonorrhea, chlamydia, genital herpes, oral herpes or any other STI. Sexual partner does NOT have HSV (oral or genital). Medical Hx: noncontributory Surgical Hx: D&C Social Hx: Sexual behavior: Monogamous with male partner Stopped drinking alcohol due to . Denies current use of tobacco, marijuana or other recreational drugs. Reports that she is safe in current relationship. Family Hx: Denies family history of congenital anomalies, Cystic Fibrosis or chromosomal abnormalities except for her brother with autism. Allergies: NKDA Plan: Repeat SVE unchanged. Pt released home with precautions. Pt has emergency contact number. F/u as scheduled in the office or sooner PRN. FINAL DIAGNOSIS: False labor >37wks gestation
--- NOTE | 2023-04-24 21:59 | DISCHARGE SUMMARY ---
Discharge Summary Condition at Discharge: Stable Discharge Disposition: 01 Home, Self Care - HOSPITAL COURSE Hospital Course: Date of Observation placement: 04/14/2023 Date of Observation discharge: 04/15/2023 Diagnosis on Admission: 1. 27yo @ 37wks gestation 2. Uterine contractions without progress of labor 3. FHR Category I 4. GBS negative Diagnosis on Discharge: 1. 27yo @ 37.1wks gestation 2. False labor >37wks gestation 3. FHR Category I 4. GBS negative Hospital course: She is a patient of [facility] who presented with c/o contractions which she rated 3-4/10 on a pain scale but she was concerned with the frequency that she was nigel. She had a Category I FHR throughout her time. Secondary to SVE /-2 and multigravid uterus she was placed in observation status. SVE was repeated 6 hours later and unchanged. She intends to follow up with myself at [facility] for routine visit or sooner if needed. She has been given routine labor precautions and she has emergency contact number. Her is present to drive her home. She verbalized understanding and agrees to above plan. She denies further questions or concerns at this time. - ALLERGIES Allergies/Adverse Reactions: Allergies Allergy/AdvReac Type Severity Reaction Status Date / Time No Known Drug Allergies Allergy Verified 03/25/23 11:38 - MEDICATIONS Home Medications: Ambulatory Orders Medication Instructions Recorded Confirmed Pnv No.95/Ferrous Fum/Folic AC 1 each PO DAILY 06/07/21 06/07/21 [ Caplet]
== END 2023-04-13 05:50 | disposition home or self-care (01) ==
LOC: WFO 21:12 → FBP 21:21 → WFO 04-13
PROVIDERS: ADMIT Nurse Practitioner Obstetrics & Gynecology; ATTEND Nurse Practitioner Obstetrics & Gynecology
DX: O47.1 False labor at or after 37 completed weeks of gestation (principal); Z3A.37 37 weeks gestation of pregnancy
CPT/HCPCS: 59025; 99215; G0378

== ENCOUNTER 2023-04-24 21:55 | Inpatient (IN) | payer OTHER ==
--- NOTE | 2023-04-24 22:03 | HISTORY & PHYSICAL EXAMINATION ---
Admit History - Visit Reason Visit Reason: Contractions, Bloody show - : 8 Parity: 4 Premature: 0 Ectopic: 0 : 3 Care: positive: [facility] Risk/History: positive: None Complications This : positive: Multiple gestation, Other Smoking Status: Never smoker - Mother's Labs Mother's Blood Type: positive: A Mother's RH: positive: Positive GBS: positive: Group B Step Negative Rubella Status: positive: Immune - Other Maternal History Other Maternal History: Mari is a 27yo @ 38.6wks gestation by LMP c/w 10.0wk U/S who presented to [facility] with c/o contractions. She reports her contractions have increased in both frequency and intensity throughout the day today and did have some bloody mucous-like discharge this evening at 1700. She denies additional vaginal bleeding and denies vaginal leakage of fluid. She reports +FM. SVE 6/80/-2 and vertex. She has been a patient of [facility] for the duration of her which has been complicated by labor without delivery at 35 weeks at which time she received 2 doses of betamethosone per protocol for lung maturity. She was diagnosed with moderate anemia at 32wks gestation and is s/p 2 IV iron infusions which did improve her anemia. She is also noted to have impaired 1 hour glucola however her 3 hour GTT was WNL. She will be admitted to [facility] for expectant management. 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 SAB x 3. Denies any complications. thought she bled a lot. Last pap 06/[address] Hare at [facility]. Denies history of gonorrhea, chlamydia, genital herpes, oral herpes or any other STI. Sexual partner does NOT have HSV (oral or genital). Medical Hx: noncontributory Surgical Hx: D&C Social Hx: Monogamous with male partner. Stopped drinking alcohol due to . Denies current use of tobacco, marijuana or other recreational drugs. Reports that she is safe in current relationship. Family Hx: Denies family history of congenital anomalies, Cystic Fibrosis or chromosomal abnormalities except for her brother with autism. Allergies: NKDA Medications: PNV; Ferrous sulfate course: A positive, antibody negative Rubella immune; varicella NON-IMMUNE HIV non-reactive; RPR non-reactive Hep B neg; Hep C neg Initial U/S @ 10.0 disconcordant with LMP dating and dates with AMRITA 05/02/2023 Genetic screening - declined FAS WNL. Anterior placenta, no previa. Size c/w dating. EFW 67%tile 3VC. Glucola 144 3hr GTT WNL: 80, 153, 124, 117 Tdap - declined COVID - declined; influenza - declined; RSV - declined GBS NEGATIVE Physical Exam: Normocephalic, atraumatic Heart RRR w/o M/G/R Lungs CTAB Abdomen gravid, soft, nontender EFW 3600g FHR Baseline 140s, moderate variability, + accels, no decels Contractions palpate moderate every 10-15 minutes with soft resting tone SVE 6/80/-2 and vertex with intact membranes Bilateral LE's no edema. Mood is good. Assessment: 27yo @ 38.6wks gestation by 10.0wk U/S Early labor FHR Category I GBS negative Moderate anemia Plan: Pt admitted to [facility] for expectant management. Plan augmentation with AROM with next SVE. Intermittent heart rate auscultation. Jacuzzi PRN. Nitrous oxide PRN. Epidural per maternal request. Anticipate . - HPI Vital Signs Temperature 36.9 C 04/24/23 21:39 Heart Rate 85 04/24/23 21:39 Respiratory Rate 18 04/24/23 21:39 Blood Pressure 109/69 04/24/23 21:39 O2 Saturation 100 04/24/23 21:39 Temperature 36.9 C 04/24/23 21:39 Heart Rate 83 04/24/23 21:39 Respiratory Rate 18 04/24/23 21:39 Blood Pressure 109/69 04/24/23 21:39 O2 Saturation 100 04/24/23 21:39 If not protocol: Oxygen Flow, liters/minute - NST Procedure NST Procedure Start Time 04:33 Stop Time 04:56 Meds/Allgy - Home Medications Home Medications: Ambulatory Orders Medication Instructions Recorded Confirmed Pnv No.95/Ferrous Fum/Folic AC 1 each PO DAILY 06/07/21 06/07/21 [ Caplet] - Allergies Allergies/Adverse Reactions: Allergies Allergy/AdvReac Type Severity Reaction Status Date / Time No Known Drug Allergies Allergy Verified 03/25/23 11:38 Physical - Abdominal Exam Vital Signs: Temp Pulse Resp BP Pulse Ox O2 Flow Rate 36.9 C 83 18 109/69 100 04/24/23 21:39 04/24/23 21:39 04/24/23 21:39 04/24/23 21:39 04/24/23 21:39 Plan for Labor - Plan For Labor I expect patient to be DC'd or transferred within 96 hours.: Yes
[2023-04-24 22:06] VITALS: O2SAT 100
[2023-04-24] MEDS ORDERED: NIFEdipine 10 MG CAPSULE PO PRN (22:29)
[2023-04-24] MEDS ORDERED: CARBOPROST TROMETHAMINE 250 MCG/ML AMP IM PRN (22:29)
[2023-04-24] MEDS ORDERED: hydrALAZINE INJ 20 MG/ML VIAL IVP PRN ×2 (22:29)
[2023-04-24] MEDS ORDERED: SODIUM CHLORIDE FLUSH 0.9% 10 ML SYRINGE IVP PRN (22:29)
[2023-04-24] MEDS ORDERED: TRANEXAMIC ACID IN NACL 1,000 MG/100 ML BAG IV PRN (22:29)
[2023-04-24] MEDS ORDERED: lidocaine 1% 20 ML MDV ID PRN (22:29)
[2023-04-24] MEDS ORDERED: OXYTOCIN/SODIUM CHLORIDE 500 ML IV PRN (22:29)
[2023-04-24] MEDS ORDERED: miSOPROStoL 200 MCG TABLET PR PRN (22:29)
[2023-04-24] MEDS ORDERED: LACTATED RINGERS 1,000 ML IV PRN (22:29)
[2023-04-24] MEDS ORDERED: OXYTOCIN 10 UNIT/ML VIAL IM PRN (22:29)
[2023-04-24] MEDS ORDERED: LABETALOL 20 MG/4 ML SYRINGE IVP PRN ×3 (22:29)
[2023-04-24] MEDS ORDERED: TERBUTALINE 1 MG/ML VIAL SUBQ PRN (22:29)
[2023-04-24] MEDS ORDERED: METHYLERGONOVINE 0.2 MG/ML VIAL IM PRN (22:29)
[2023-04-24] MEDS ORDERED: miSOPROStoL 200 MCG TABLET BC PRN (22:29)
--- NOTE | 2023-04-24 22:33 | PROCEDURE REPORT ---
- HPI Diagnosis/Indication for NST: Other Vital Signs Temperature 36.9 C 04/24/23 21:39 Heart Rate 85 04/24/23 21:39 Respiratory Rate 18 04/24/23 21:39 Blood Pressure 109/69 04/24/23 21:39 O2 Saturation 100 04/24/23 21:39 Temperature 36.9 C 04/24/23 21:39 Heart Rate 83 04/24/23 21:39 Respiratory Rate 18 04/24/23 21:39 Blood Pressure 109/69 04/24/23 21:39 O2 Saturation 100 04/24/23 21:39 If not protocol: Oxygen Flow, liters/minute - NST Procedure NST Procedure Start Time 04:33 Stop Time 04:56 - Results and Plan Findings/Impression: NST reactive. FHR baseline 140s, moderate variability, + accels, no decels Contractions palpate moderate every 10-15 minutes with soft resting tone.
[2023-04-24 22:49] LABS: BASOPHILS % (AUTO) 0.4 %; EOSINOPHILS # (AUTO) 0.1 10^3/uL (0.0-0.7); EOSINOPHILS % (AUTO) 0.5 %; LYMPHOCYTES # (AUTO) 2.6 10^3/uL (1.5-3.5); LYMPHOCYTES % (AUTO) 23.4 %; MEAN CORPUSCULAR HEMOGLOBIN 26.8 pg (27.0-31.0); MEAN CORPUSCULAR HGB CONC 30.6 g/dL (32.0-36.0); MEAN CORPUSCULAR VOLUME 87.6 fL (81.0-99.0); MEAN PLATELET VOLUME 10.9 fL (7.9-10.8); MONOCYTES # (AUTO) 0.8 10^3/uL (0.0-1.0); NEUTROPHILS # (AUTO) 7.5 10^3/uL (1.5-6.6); NEUTROPHILS % (AUTO) 68.2 %; PLT - PLATELET COUNT 178 10^3/uL (130-450); RED BLOOD COUNT 4.11 10^6/uL (4.20-5.40)
[2023-04-24] MEDS ORDERED: SODIUM CHLORIDE FLUSH 0.9% 10 ML SYRINGE IVP SCH (23:00)
[2023-04-24] MEDS ORDERED: LACTATED RINGERS 1,000 ML IV SCH (23:00)
[2023-04-24 23:12] LABS: PLATELET ESTIMATE, MANUAL NORMAL (130-450,000) (NORMAL); PLATELET MORPHOLOGY NORMAL APPEARANCE (NORMAL); RBC MORPHOLOGY (MULTIPLE) 3+ ANISOCYTOSIS (NORMAL); SLIDE REVIEW? Indicated
--- NOTE | 2023-04-25 02:52 | ANESTHESIA ---
Pre-Anesthesia VS, & Labs - Diagnosis term labor - Procedure epidural Vital Signs: Temp Pulse Resp BP Pulse Ox O2 Flow Rate 36.9 C 83 18 109/69 100 04/24/23 22:42 04/24/23 21:39 04/24/23 21:39 04/24/23 21:39 04/24/23 21:39 Height: 5 ft 4 in Weight (kg): 86.183 kg Body Mass Index: 32.5 BMI Classification: Obese - NPO Last Fluid Intake: t/o night Last Food Intake: dinner - Is Patient ?: Yes - Lab Results Current Lab Results: Laboratory Tests 04/24/23 22:35: WBC 11.0 H, RBC 4.11 L, Hgb 11.0 L, Hct 36.0 L, MCV 87.6, MCH 26.8 L, MCHC 30.6 L, Plt Count 178, MPV 10.9 H, Neut # (Auto) 7.5 H, Lymph # (Auto) 2.6, Alfalfa # (Auto) 0.8, Eos # (Auto) 0.1, Baso # (Auto) 0.0, Absolute Nucleated RBC 0.00, Nucleated RBC % 0.0, Manual Slide Review Indicated, Platelet Estimate NORMAL (130-450,000), Platelet Morphology NORMAL APPEARANCE, RBC Morph Micro Appear 3+ ANISOCYTOSIS 04/24/23 22:35: Blood Type A POSITIVE, Antibody Screen NEGATIVE, Crossmatch IS Only See Detail Lab results reviewed: Yes Fish Bones: 04/24/23 22:35 Home Medications and Allergies Active Medications Carboprost Tromethamine (Carboprost Tromethamine 250 Mcg/Ml Amp) 250 mcg IM .ONCE PRN PRN Reason: Hemorrhage Hydralazine HCl (Hydralazine Inj 20 Mg/Ml Vial) 5 - 10 mg IVP Q20M PRN; Protocol PRN Reason: SBP> or= 160 OR DBP> or= 110 Hydralazine HCl (Hydralazine Inj 20 Mg/Ml Vial) 10 mg IVP .ONCE PRN; Protocol PRN Reason: SBP> or= 160 OR DBP> or= 110 Lactated Ringer's (Lr) 500 mls @ 999 mls/hr IV PRN PRN PRN Reason: PER PHYSICIAN ORDER Oxytocin/Sodium Chloride (Pitocin/Sodium Chloride) 500 mls @ 999 mls/hr IV PRN PRN; Protocol PRN Reason: POST- HEMORR PREVENTION Tranexamic Acid (Tranexamic 1,000 Mg/100ml-Nacl) 1,000 mg in 100 mls @ 600 mls/hr IV Q30M PRN PRN Reason: EBL >1200mL and within 3hr Lactated Ringer's (Lr) 1,000 mls @ 125 mls/hr IV .Q8H DARON Labetalol HCl (Labetalol 20 Mg/4 Ml Syringe) 20 - 80 mg IVP Q10M PRN; Protocol PRN Reason: SBP> or= 160 OR DBP> or= 110 Labetalol HCl (Labetalol 20 Mg/4 Ml Syringe) 20 mg IVP .ONCE PRN; Protocol PRN Reason: SBP> or= 160 OR DBP> or= 110 Labetalol HCl (Labetalol 20 Mg/4 Ml Syringe) 20 - 40 mg IVP Q10M PRN; Protocol PRN Reason: SBP> or= 160 OR DBP> or= 110 Lidocaine HCl (Lidocaine 1% 20 Ml Mdv) 20 ml ID .ONCE PRN PRN Reason: PERINEAL REPAIR Stop: 04/27/23 22:29 Methylergonovine Maleate (Methylergonovine 0.2 Mg/Ml Vial) 0.2 mg IM .ONCE PRN PRN Reason: Hemorrhage Misoprostol (Misoprostol 200 Mcg Tablet) 600 mcg BC .ONCE PRN PRN Reason: Hemorrhage Misoprostol (Misoprostol 200 Mcg Tablet) 800 mcg LA .ONCE PRN PRN Reason: Hemorrhage Nifedipine (Nifedipine 10 Mg Capsule) 10 - 20 mg PO Q20M PRN; Protocol PRN Reason: SBP> or= 160 OR DBP> or= 110 Oxytocin (Oxytocin 10 Unit/Ml Vial) 10 unit IM .ONCE PRN PRN Reason: Step One if no IV access. Sodium Chloride (Sodium Chloride Flush 0.9% 10 Ml Syringe) 10 ml IVP PRN PRN PRN Reason: NEEDED PER PROVIDER ORDERS Sodium Chloride (Sodium Chloride Flush 0.9% 10 Ml Syringe) 10 ml IVP Q8H DARON Terbutaline Sulfate (Terbutaline 1 Mg/Ml Vial) 0.25 mg SUBQ .ONCE PRN PRN Reason: Tachystole Pnv No.95/Ferrous Fum/Folic AC [ Caplet] 1 each PO DAILY 06/07/21 Allergies/Adverse Reactions: Allergies Allergy/AdvReac Type Severity Reaction Status Date / Time No Known Drug Allergies Allergy Verified 03/25/23 11:38 Anes History & Medical History - Anesthetic History Anesthesia Complications: reports: No previous complications Family history of Anesthesia Complications: Denies Family history of Malignant Hyperthermia: Denies - Medical History Cardiovascular: reports: None Pulmonary: reports: None Gastrointestinal: reports: GERD Urinary: reports: None Neuro: reports: Migraines Smoking Status: Never smoker - Surgical History Gynecologic: reports: Dilation and currettage - Obstetrical History : 8 Parity: 4 Events: reports: None Complications: reports: Multiple gestation, Other Exam General: Alert, Oriented x3, Cooperative Dental: WNL Neck Mobility: Normal Respiratory: No respiratory distress Cardiovascular: Regular rate Neurological: Normal speech Mental/Cognitive Status: Alert/Oriented X3, Normal for patient Cognitive Status: Within normal limits Plan Anesthesia Type: Epidural Consent for Procedure(s) Verified and Reviewed: Yes Code Status: Attempt Resuscitation ASA classification: 2-Mild systemic disease Is this case an emergency?: No
[2023-04-25] MEDS ORDERED: OXYTOCIN/SODIUM CHLORIDE 0 ML IV ONE (03:20)
[2023-04-25] MEDS ORDERED: OXYTOCIN 10 UNIT/ML VIAL ONE (03:22)
[2023-04-25] MEDS ORDERED: miSOPROStoL 200 MCG TABLET ONE (03:22)
[2023-04-25] MEDS ORDERED: TRANEXAMIC ACID IN NACL 0 MG/0 ML BAG IV ONE (03:22)
[2023-04-25] MEDS ORDERED: lidocaine 1% 20 ML MDV ONE (03:22)
--- NOTE | 2023-04-25 05:01 | DELIVERY NOTE ---
Delivery Note - Labor Labor: positive: Augmented by ARM - Infant Delivery Method Delivery Method: positive: Spontaneous vaginal delivery - Presentation Presentation: positive: Vertex - Nuchal Cord Nuchal Cord: positive: None - Amniotic Fluid Description Amniotic Fluid Description: positive: Clear - Episiotomy Type Episiotomy Type: positive: None - Laceration Laceration: positive: None - Delivery Outcome Delivery Outcome: positive: Livebirth - Isabella Isabella: positive: Placed in direct skin contact with mother, Stimulated, Warmed, Winona used sex: positive: Male - Cord Cord: positive: 3 vessels - Placenta Placenta: positive: Intact, Spontaneous - Estimated Blood Loss Estimated Blood Loss (in cc): 100 - Post Delivery Events Post Delivery Events: positive: No post delivery events - Delivery Comments (Free Text/Narrative) Delivery Comments (Free Text/Narrative): Labor: This 27yo @ 39.0wks gestation by 10wk U/S presented to [facility] in active labor. Cervix was 6/80/-2 and vertex with intact membranes. FHR /demonstrated a Category I pattern throughout labor. Normal labor course. AROM occurred on 04/24/2023 @ 2150 and was noted to be a moderate amount of clear fluid. Pt progressed spontaneously to c/c/+2 @ 0412. : Normal SVB of viable male infant on 04/25/2023 @ 0414. No nuchal cord. The was placed on maternal abdomen, stimulated, dried, and placed skin to skin. 's were 8/9 at 1 and 5 min respectively. Pt declined active management of the third stage of labor. The umbilical cord was allowed to stop pulsating at which time it was doubly clamped by CNM and cut by FOB. Cord blood was obtained. 3VC. Placenta delivered spontaneously and intact at 0422. EBL 100mL. Fourth stage: Uterine fundus firm and there is no excessive bleeding. The perineum, vagina, and cervix were inspected and found to be intact. initiated. Family bonding well. Both mother and baby were left in stable condition.
[2023-04-25] MEDS ORDERED: HYDROCORTISONE 1% CREAM 28 GM TUBE PR PRN (05:06)
[2023-04-25] MEDS ORDERED: WITCH HAZEL/GLYCERIN 1 PAD TOP PRN (05:06)
[2023-04-25] MEDS ORDERED: FERRIC GLUCONATE 125 MG in SODIUM CHLORIDE 0.9% 100ML 100 ML IV ONE (05:07)
[2023-04-25] MEDS: ACETAMINOPHEN 500 MG TABLET PO SCH ×3 (05:44→22:23)
[2023-04-25] MEDS: IBUPROFEN 800 MG TABLET PO SCH ×3 (05:44→21:12)
[2023-04-25] MEDS: DOCUSATE SODIUM 100 MG CAPSULE PO SCH (14:00)
[2023-04-26] MEDS: IBUPROFEN 800 MG TABLET PO SCH ×2 (03:32→09:56)
[2023-04-26] MEDS: DOCUSATE SODIUM 100 MG CAPSULE PO SCH ×2 (03:33→08:51)
[2023-04-26] MEDS: ACETAMINOPHEN 500 MG TABLET PO SCH (06:39)
[2023-04-26] MEDS ORDERED: FERROUS SULFATE 325 MG TABLET PO SCH (08:00)
--- NOTE | 2023-04-26 11:01 | Discharge Plan ---
Discharge Plan Problem Reviewed?: Yes Disposition: Home, Self Care Condition: Good Diet: Regular Activity Restrictions: No Restrictions Shower Restrictions: No Weight Bearing: Full Weight Instruction Topics: Vaginal After No Smoking: If you smoke, Please STOP! Call for help. Follow-up with: Beba Mai CNM, ARNP [Provider Admit Priv/Credential] - 1 Week (05/04/2023 @ 3:00PM with Beba Mai CNM/MONI)
--- NOTE | 2023-04-26 11:08 | DISCHARGE SUMMARY ---
Discharge Summary Condition at Discharge: Good Discharge Disposition: 01 Home, Self Care - HOSPITAL COURSE Hospital Course: Date of Admission: 04/24/2023 Date of Discharge: 04/26/2023 Diagnosis on Admission: 1. 27yo @ 38.6wks gestation by 10.0wk U/S 2. Early labor 3. FHR Category I 4. GBS negative 5. Moderate anemia Diagnosis on Discharge: 1. 27yo PPD#1 s/p TSVB viable male 2. 3. Normal recovery Brief History: She is a patient of [facility] who presented on 04/24/2023 with c/o contractions. Upon arrival she was noted to be 6/80/-2 and vertex with intact membranes. AROM occurred for augmentation of labor and was noted to be a moderate amount of clear fluid. She progressed spontaneously to deliver a viable male infant on 04/25/2023 @ 0414 over intact perineum. Apgars were 8/9 at 1 and 5 minutes respectively. EBL 100mL. She has been doing well in her course. She is ambulating and tolerating a regular diet. She is urinating without difficulty and her lochia is normal. Her pain is well controlled with oral medications. She is bonding well with her baby and she is without difficulty. She will be discharged home today on day #1 with instructions to continue taking her vitamin while and to continue taking ibuprofen and tylenol over the counter as needed for pain management. She intends to follow up with myself at [facility] in 1 week for routine visit or sooner if needed. She has been given precautions to call if she has any w orsening fevers, chills, abdominal pain, increased vaginal bleeding or foul smelling vaginal lochia. Physical exam: Normocephalic, atraumatic. Heart RRR w/o M/G/R, lungs CTAB, abdomen soft and nontender with fundus firm at U, perineum intact, light lochia rubra, bilateral LE's no edema. Mood is good. - ALLERGIES Allergies/Adverse Reactions: Allergies Allergy/AdvReac Type Severity Reaction Status Date / Time No Known Drug Allergies Allergy Verified 03/25/23 11:38 - MEDICATIONS Home Medications: Ambulatory Orders Medication Instructions Recorded Confirmed Pnv No.95/Ferrous Fum/Folic AC 1 each PO DAILY 06/07/21 06/07/21 [ Caplet] - LABS Result Diagrams: 04/24/23 22:35
[2023-04-26 12:28] VITALS: BP 115/66
--- NOTE | 2023-04-26 15:32 | Labor Flowsheet ---
Labor Flowsheet Datetime Report Generated by CPN: 04/26/2023 15:32 Datetime: 04/26/2023 12:22 VITAL SIGNS NBP Sys/Omayra/Mean (mmHg): 115 : 66 : 77 Pulse: 74 Datetime: 04/25/2023 11:59 SpO2 (%): 100 Datetime: 04/25/2023 06:15 Stage of : Datetime: 04/25/2023 04:12 VAGINAL EXAM Dilatation (cm): 10.0 Effacement (%): 100 Station: 2 Exam by: AAlexus Mai, CNM Datetime: 04/25/2023 04:00 UTERINE ACTIVITY Monitor Mode: External Frequency (min): 2-3 Quality: Strong Duration (sec): 50-110 Pattern: Normal: <= 5 Contractions in 10 Minutes Resting Tone (Palpate): Relaxed ASSESSMENT A Monitor Mode: Telemetry FHR Baseline Rate : 135 Variability: Moderate 6-25 bpm Accelerations: 15X15 Decelerations: None Category: Category I Datetime: 04/25/2023 03:43 COMMUNICATION Communication: Provider at Bedside Datetime: 04/25/2023 03:33 PAIN Pain Location: Coccyx Pain Assessment Comments: feeling pressure LaborFlag: Labor Datetime: 04/25/2023 03:30 Contraction Comments: coupling of UCs noted Actions for Decelerations: Other Datetime: 04/25/2023 03:29 PATIENT CARE Patient Position/Activity: Hands-Knees Datetime: 04/25/2023 03:18 Patient Care Comments: offered fluids Datetime: 04/25/2023 02:41 Cervix, Consistency: Soft Datetime: 04/25/2023 02:00 Nurse Giving Report: Karen Peña RN Nurse Receiving Report: Yamilet Sinclair RN Communication Comments: resuming care for pt
== END 2023-04-26 14:00 | disposition home or self-care (01) | DRG 807 ==
LOC: WFO 21:55 → FBP 21:55 → WFO 22:29 → FBP 04-25 03:20
PROVIDERS: ADMIT Nurse Practitioner Obstetrics & Gynecology; ATTEND Nurse Practitioner Obstetrics & Gynecology
PROC: 10907ZC Drainage of Amniotic Fluid, Therapeutic from Products of Conception, Via Natural or Artificial Opening (ICD-10-PCS; principal; 2023-04-24)
PROC: 10E0XZZ Delivery of Products of Conception, External Approach (ICD-10-PCS; 2023-04-25)
DX: O99.02 Anemia complicating childbirth (principal); Z37.0 Single live birth; Z3A.39 39 weeks gestation of pregnancy
CPT/HCPCS: 59409; 85025; 86850; 86900; 86901; 86920; 99215; A9270; 59025

== ENCOUNTER 2023-08-14 08:03 | Day surgery (SDC) | payer OTHER ==
[2023-08-14 08:26] LABS: HCG UR QUAL NEGATIVE
[2023-08-14] MEDS: LACTATED RINGERS 1,000 ML IV ONE ×3 (08:30→11:20)
[2023-08-14] MEDS: ACETAMINOPHEN 325 MG TABLET PO ONE (08:35)
[2023-08-14] MEDS ORDERED: fentaNYL 100 MCG/2 ML VIAL IVP PRN (08:53)
[2023-08-14] MEDS ORDERED: ATROPINE ABBOJECT 1 MG/10 ML SYRINGE IVP PRN (08:53)
[2023-08-14] MEDS ORDERED: NALOXONE 0.4 MG/ML VIAL IVP PRN (08:53)
[2023-08-14] MEDS ORDERED: MORPHINE 2 MG/ML CARPUJECT IVP PRN (08:53)
--- NOTE | 2023-08-14 08:53 | ANESTHESIA ---
Pre-Anesthesia VS, & Labs - Diagnosis Desires sterilization - Procedure Lap Andrés salpingectomy Vital Signs: Temp Pulse Resp BP Pulse Ox O2 Flow Rate 36.0 C L 76 20 120/72 99 08/14/23 08:12 08/14/23 08:12 08/14/23 08:12 08/14/23 08:12 08/14/23 08:12 Height: 5 ft 4 in Weight (kg): 87.1 kg Body Mass Index: 32.9 BMI Classification: Obese - NPO >8 hours - Is Patient ?: No - Lab Results Lab results reviewed: Yes Home Medications and Allergies Home Medications: Ambulatory Orders No Known Home Medications 08/07/23 No Known Home Medications 08/07/23 Allergies/Adverse Reactions: Allergies Allergy/AdvReac Type Severity Reaction Status Date / Time No Known Drug Allergies Allergy Verified 03/25/23 11:38 Anes History & Medical History - Anesthetic History Anesthesia Complications: reports: No previous complications - Medical History Cardiovascular: reports: None Pulmonary: reports: Asthma Gastrointestinal: reports: None Urinary: reports: None Neuro: reports: Migraines Musculoskeletal: reports: None Endocrine/Autoimmune: reports: None Blood Disorders: reports: Anemia Skin: reports: None Smoking Status: Never smoker Psychosocial: reports: No issues indicated History of Cancer?: No - Surgical History Gynecologic: reports: Dilation and currettage Exam General: Alert, Oriented x3, Cooperative, No acute distress Dental: WNL Mouth Openin Fingerbreadth Neck Mobility: Normal Mallampati classification: III Thyromental Distance: 4-6 cm Mental/Cognitive Status: Alert/Oriented X3, Normal for patient Plan Anesthesia Type: General Consent for Procedure(s) Verified and Reviewed: Yes Code Status: Attempt Resuscitation ASA classification: 2-Mild systemic disease Is this case an emergency?: No
[2023-08-14 08:57] LABS: BASOPHILS # (AUTO) 0.1 10^3/uL (0.0-0.1); BASOPHILS % (AUTO) 0.5 %; EOSINOPHILS # (AUTO) 0.1 10^3/uL (0.0-0.7); HCT - HEMATOCRIT 36.1 % (37.0-47.0); HGB - HEMOGLOBIN 11.6 g/dL (12.0-16.0); LYMPHOCYTES # (AUTO) 4.5 10^3/uL (1.5-3.5); LYMPHOCYTES % (AUTO) 40.7 %; MEAN CORPUSCULAR HEMOGLOBIN 29.9 pg (27.0-31.0); MEAN CORPUSCULAR HGB CONC 32.1 g/dL (32.0-36.0); MONOCYTES # (AUTO) 0.7 10^3/uL (0.0-1.0); MONOCYTES % (AUTO) 6.2 %; NEUTROPHILS # (AUTO) 5.6 10^3/uL (1.5-6.6); NEUTROPHILS % (AUTO) 51.2 %; PLT - PLATELET COUNT 215 10^3/uL (130-450); RED BLOOD COUNT 3.88 10^6/uL (4.20-5.40); RED CELL DISTRIBUTION WIDTH 13.8 % (12.0-15.0)
[2023-08-14] MEDS ORDERED: LACTATED RINGERS 1,000 ML IV SCH (09:00)
[2023-08-14] MEDS ORDERED: BUPIVACAINE 0.5% PF 10 ML VIAL ONE (09:27)
[2023-08-14] MEDS ORDERED: LIDOCAINE 1%-EPI 1:100000 20 ML MDV ONE (09:27)
[2023-08-14] MEDS ORDERED: PROPOFOL 200 MG/20 ML VIAL IVP ONE (09:36)
[2023-08-14] MEDS ORDERED: ROCURONIUM 50 MG/5 ML VIAL ONE (09:36)
[2023-08-14] MEDS ORDERED: LIDOCAINE-PF 2% 10 ML AMP SUBQ ONE (09:36)
[2023-08-14] MEDS ORDERED: fentaNYL 100 MCG/2 ML VIAL ONE (09:36)
[2023-08-14] MEDS ORDERED: MIDAZOLAM 2 MG/2 ML VIAL ONE (09:36)
[2023-08-14] MEDS ORDERED: ONDANSETRON 4 MG/2 ML VIAL ONE ×2 (10:17→11:14)
[2023-08-14] MEDS ORDERED: SUGAMMADEX 200 MG/2 ML VIAL IVP ONE (10:17)
[2023-08-14] MEDS ORDERED: DEXAMETHASONE 4 MG/ML VIAL ONE (10:17)
[2023-08-14] MEDS ORDERED: KETOROLAC 30 MG/ML VIAL ONE (10:17)
[2023-08-14] MEDS: BUPIVACAINE 0.5% PF 10 ML VIAL IM ONE ×2 (10:31)
[2023-08-14] MEDS: LIDOCAINE 1%-EPI 1:100000 20 ML MDV SUBQ ONE ×2 (10:31)
[2023-08-14] MEDS ORDERED: HYDROmorphone 1 MG/ML CARPUJECT ONE (10:46)
[2023-08-14] MEDS ORDERED: HYDROcod/ACETAM 10 MG/325 MG TABLET PO PRN (10:52)
--- NOTE | 2023-08-14 10:57 | OPERATIVE REPORT ---
Operative Report - General Procedure Date: 08/14/23 Planned Procedure: Laparoscopic bilateral salpingectomy Pre-Op Diagnosis: Desires sterility Procedure Performed: Laparoscopic bilateral salpingectomy Post Op Diagnosis: Status post laparoscopic bilateral salpingectomy - Procedure Note Primary Surgeon: Ag Martins MD Secondary Surgeon: MONI Randall Anesthesia Provider: Nick Ferreira CRNA Pathology: None IV Fluids (mL): 800 Estimated Blood Loss (mL): 10 Urine Output (mL): 5 Complications: None - Other Other Information/Narrative: Dr. Beckett had preop the patient, but as she was feeling unwell this morning, together we talked with the patient and patient agreed to allow me to continue with the procedure. Amended the consents to state this. Prior to surgery, we discussed the risks, alternatives, benefits to tubal ligation. We discussed long-acting control such as IUDs and implants. We had discussion about partner vasectomy and the pros and cons to this including a smaller surgery, and easier recovery. We discussed the general risk of surgery including infection, bleeding, damage to other organs, needing a larger incision. Specific to tubal ligation, we discussed the risk of regret, and discussed that regret is greater in those under 30, without children, and not in stable relationships. Patient says she is confident in her decision to not have any more children. We also discussed the risk of failure, and that less than 1/100 tubal ligation fail, but if it did, she would be at increased risk of ectopic . Patient desires to proceed with bilateral tubal ligation. Patient was taken to the OR and placed in the dorsal lithotomy position using great white stirrups after adequate anesthesia was obtained. Patient was prepped and draped in the usual fashion. A bivalve speculum was used to visualize the cervix and a uterine manipulator was placed after performing a cervical block.. Local anesthesia was used below the umbilicus. An 11 blade scalpel was used to incise the skin. Direct visual entry was used to place the infraumbilical trocar. Upon entering the peritoneal cavity, low flow was used to ensure appropriate positioning. Upon visualization of the abdominal cavity, high flow was then initiated. 2 additional trocars was placed under visualization in a similar fashion in the right and left lower quadrants. After visualization of the left fallopian tube, it was grasped with an atraumatic grasper. The mesosalpinx was cauterized and cut with a Ligasure device. Attention was then turned to the right fallopian tube which was then removed in a similar fashion. The abdomen was reviewed for hemostasis, and a healthy- appearing liver was noted. The trocars were then removed, and abdomen was evacuated of gas. The trocar sites were then closed with a 4-0 Monocryl in a sub-cuticular fashion and covered with Dermabond. Patient was taken to the PACU in stable condition. I appreciate the assistance of MONI Randall during this procedure, and the assistance in retraction, visualization, dissection, and overall assistance during the case were instrumental to the patient's wellbeing.
[2023-08-14] MEDS: ONDANSETRON 4 MG/2 ML VIAL IVP PRN (11:15)
[2023-08-14] MEDS ORDERED: PROMETHAZINE INJ 6.25 MG in SODIUM CHLORIDE 0.9% 50 ML IV PRN (11:30)
[2023-08-14] MEDS ORDERED: HYDROmorphone 0.5 MG/0.5 ML SYRINGE ONE (11:41)
[2023-08-14] MEDS: HYDROmorphone 0.5 MG/0.5 ML SYRINGE IVP PRN (11:45)
[2023-08-14 14:07] VITALS: BP 106/70; O2SAT 97
--- NOTE | 2023-08-14 17:19 | ANESTHESIA POST OP EVALUATION ---
Anesthesia Post Eval - Post Anesthesia Eval Vitals: Last Vital Signs Temp 36.3 C L 08/14/23 13:27 Pulse 62 08/14/23 14:05 Resp 16 08/14/23 14:05 BP 106/70 08/14/23 14:05 Pulse Ox 97 08/14/23 14:05 O2 Flow Rate CV Function Including HR & BP: Stable Pain Control: Satisfactory Nausea & Vomiting: Negative Mental Status: Baseline Respiratory Status: Airway Patent Hydration Status: Satisfactory Anesthesia Complications: None
== END 2023-08-14 08:04 | disposition home or self-care (01) ==
LOC: SDS 08:03
PROVIDERS: ATTEND Obstetrics & Gynecology
DX: Z30.2 Encounter for sterilization (principal)
CPT/HCPCS: 36415; 58661; 81025; 85025; A9270; J1170; J7040; J7120

== ENCOUNTER 2023-08-21 04:47 | Emergency (ER) | payer OTHER ==
--- NOTE | 2023-08-21 04:59 | ED Physician Documentation ---
History of Present Illness - Stated complaint Stated Complaint: R HAND PX/FINGERS NUMB - Additonal information Additional information: Patient was changing her infant child at approximately 1 AM when she had sudden onset pain to dorsum of right hand, focal to areas of 2nd and 3rd metacarpals, dorsal surface. She says she noted focal, blue swelling at that spot and surmised it was a swollen vein; the swelling rapidly improved and by the time of this evaluation, only a small amount of subtle , tender swelling is noted on right hand, dorsal surface between the mid-shafts of the second and third metatarsals. The rest of the hand is not swollen. There is a faint bluish discoloration at the site of symptoms, as well. She has pain with palpation, pain with movement of the hand, wrist. She recently underwent hysterectomy but right hand was only used for a blood draw; IV was in LUE. 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: Dilation and currettage - Present Medications Home Medications: Ambulatory Orders Medication Instructions Recorded Confirmed No Known Home Medications 08/21/23 08/21/23 - Allergies Allergies/Adverse Reactions: Allergies Allergy/AdvReac Type Severity Reaction Status Date / Time No Known Drug Allergies Allergy Verified 08/21/23 05:06 - Social History Does the pt smoke?: No Smoking Status: Never smoker Does the pt drink ETOH?: No Does the pt have substance abuse?: No - Immunizations Immunizations are current?: Yes - POLST Patient has POLST: No PD ED PE NORMAL - Vitals Vital signs reviewed: Yes - General General: Alert and oriented X 3, No acute distress, Well developed/nourished - Cardiac Cardiac: RRR, No murmur - Respiratory Respiratory: No respiratory distress, Clear bilaterally - Derm Derm: Warm and dry PD ED PE EXPANDED - Extremities SILVANA UE/Hands Visual: 1 - bruising (very faint bluish discoloration), swelling (subtle, focal swelli ng), tenderness Results - Vitals Vitals: Oxygen O2 Source Room air PD Medical Decision Making - ED course Complexity details: considered differential, d/w patient ED course: Patient is particularly concerned that her symptoms represent "blood clot" (per patient). I explained that DVT would have symptoms of gradual onset, non-focal (rather, would be circumferential swelling from a level on the extremity and distal to it, possibly pain, as well). Furthermore, a superficial venous thrombosis would not swell and then nearly resolve, it would involve a visible and palpable cord (inflamed vein). While I do not have a confident diagnosis in this case, given the sudden onset of focal pain with focal swelling that has nearly resolved by the time of this evaluation, muscle cramp is possibility despite not having undertaken heavy activity at the time. She declines analgesics. Return precautions reviewed, advised to follow up with communications marketing intern or PCP, next available appointment Departure - Departure Disposition: 01 Home, Self Care Clinical Impression: Sprain of hand, right Qualifiers: Encounter type: initial encounter Qualified Code(s): S63.91XA - Sprain of unspecified part of right wrist and hand, initial encounter Condition: Good Instructions: ED Sprain Hand Comments: At this time, the there are no tests that are indicated from the emergency standpoint. As we discussed, the sudden onset of symptoms combined with the focality of pain and swelling are completely inconsistent with a blood clot. Without specific injury to the hand, x-rays are unlikely to be helpful from a diagnostic standpoint. Given the sudden onset of the pain, I suspect a simple hand sprain despite not occurring in the setting of any strenuous activity. If your symptoms have not resolved within the next 48 hours, contact your primary care provider for reevaluation. You can always return to the emergency department if your symptoms worsen in any way or if you develop new/concerning signs/symptoms (such as increasing pain, swelling, development of redness). Forms: PCP List Discharge Date/Time: 08/21/23 05:40
[2023-08-21 05:05] VITALS: BP 129/79; O2SAT 97
== END 2023-08-21 05:40 | disposition home or self-care (01) ==
LOC: ED 04:47
DX: S63.91XA Sprain of unspecified part of right wrist and hand, initial encounter (principal); X58.XXXA Exposure to other specified factors, initial encounter
CPT/HCPCS: 99281; 99283